=== PATIENT | male | born 1945 | race American Indian/Alaskan Native ===

== ENCOUNTER 2017-02-04 18:31 | Inpatient (IN) | payer MEDICARE, MEDICAID ==
[2017-02-04 20:14] LABS: Albumin 3.5 g/dL (3.9-5); Calcium 9.3 mg/dL (8.4-10.2)
--- NOTE | 2017-02-04 21:01 | Cat Scan Report ---
FINAL REPORT PROCEDURE: CT HEAD/BRAIN WO CON TECHNIQUE: Computerized tomography of the head was performed without contrast material. HISTORY: AMS, right side weakness COMPARISON: No prior studies are available for comparison. FINDINGS: There is encephalomalacia in the medial left occipital lobe and left inferior cerebellum. There are extensive underlying involutional changes, with prominence of the ventricles and the sulci. There is periventricular white matter low attenuation, compatible with chronic microvascular ischemic changes. Chronic appearing subcentimeter bilateral basal ganglia lacunar infarcts are noted. Intracranial arteries are symmetric in appearance. There is no CT evidence of intracranial mass, hemorrhage, acute territorial infarction, or hydrocephalus. Calvarium is intact. Visualized paranasal sinuses and mastoids are aerated. There is deformity of the right globe. IMPRESSION: Chronic ischemic changes. No CT evidence of acute intracranial abnormality
--- NOTE | 2017-02-04 21:02 | Emergency Department Report ---
ED Altered Mental Status HPI - General Chief Complaint: Altered Mental Status Stated Complaint: FALL W/ R SIDE PARALYSIS Time Seen by Provider: 02/04/17 20:30 Source: EMS Mode of arrival: Stretcher Limitations: Language Barrier (APHASIA-MODERATE, PT UNABLE TO GIVE ANY HISTORY ) , Altered Mental Status - History of Present Illness Initial Comments: 71 YO MALE NOTED TO [facility]. HE WAS FOUND DOWN ON THE FLOOR TODAY AT 1430 AND WAS BROUGHT TO THE ER AT 1900 WITH C/O AMS. PER ASSISTED, PT IS ALERT BUT UNRESPONSIVE. PT WAS LYING ON BED WITH EYES CLOSED IN NO RESPIRATORY DISTRESS. MD Complaint: altered mental status -: Sudden Severity: moderate Consistency of Symptoms: constant Context: other (FPSSTCVA) - Related Data Home Medications Medication Instructions Recorded Confirmed Last Taken Aspirin EC [Aspirin Enteric Coated 81 mg PO QDAY 01/02/16 01/02/16 Unknown TAB] Calcitriol [Rocaltrol] 0.25 mcg PO QDAY 01/02/16 01/02/16 Unknown DULoxetine [Cymbalta] 30 mg PO DAILY 01/02/16 01/02/16 Unknown Ferrous Sulfate [Feosol] 325 mg PO QDAY 01/02/16 01/02/16 Unknown Hydralazine HCl [Apresoline TAB] 50 mg PO Q8HR 01/02/16 01/02/16 Unknown Insulin Glargine [Lantus] 50 units SQ QHS 01/02/16 01/02/16 Unknown Insulin Lispro [Humalog 100 0 units SQ ACHS 01/02/16 01/02/16 Unknown UNITS/ML Kwikpen] Insulin Lispro [Humalog 100 3 units SQ AC 01/02/16 01/02/16 Unknown UNITS/ML Kwikpen] Metoprolol [Lopressor TAB] 50 mg PO DAILY 01/02/16 01/02/16 Unknown Pantoprazole [Protonix TAB] 40 mg PO QDAY 01/02/16 01/02/16 Unknown Simvastatin [Zocor TAB] 20 mg PO QHS 01/02/16 01/02/16 Unknown Sodium Bicarbonate 650 mg PO DAILY 01/02/16 01/02/16 Unknown Tamsulosin [Flomax] 0.4 mg PO QDAY 01/02/16 01/02/16 Unknown amLODIPine [Norvasc] 10 mg PO DAILY 01/02/16 01/02/16 Unknown traZODone [Desyrel] 50 mg PO QHS 01/02/16 01/02/16 Unknown Previous Rx's Medication Instructions Recorded Last Taken Type Amoxicillin [Amoxicillin TAB] 875 mg PO BID #14 tablet 01/02/16 Unknown Rx Allergies Allergy/AdvReac Type Severity Reaction Status Date / Time No Known Allergies Allergy Unverified 01/02/16 17:49 ED Review of Systems ROS: Stated complaint: FALL W/ R SIDE PARALYSIS Other details as noted in HPI Comment: Unobtainable due to pts medical conditions ED Past Medical Hx - Past Medical History Previous Medical History?: Yes Hx Hypertension: Yes Hx CVA: Yes Hx Diabetes: Yes Hx Renal Disease: Yes (renal failure) Additional medical history: insomnia. BPH. legally blind. dementia. toxic encephalopathy - Surgical History Past Surgical History?: No - Social History Smoking Status: Unknown if ever smoked Substance Use Type: None - Medications Home Medications: Home Medications Medication Instructions Recorded Confirmed Last Taken Type Amoxicillin [Amoxicillin TAB] 875 mg PO BID #14 tablet 01/02/16 Unknown Rx Aspirin EC [Aspirin Enteric Coated 81 mg PO QDAY 01/02/16 01/02/16 Unknown History TAB] Calcitriol [Rocaltrol] 0.25 mcg PO QDAY 01/02/16 01/02/16 Unknown History DULoxetine [Cymbalta] 30 mg PO DAILY 01/02/16 01/02/16 Unknown History Ferrous Sulfate [Feosol] 325 mg PO QDAY 01/02/16 01/02/16 Unknown History Hydralazine HCl [Apresoline TAB] 50 mg PO Q8HR 01/02/16 01/02/16 Unknown History Insulin Glargine [Lantus] 50 units SQ QHS 01/02/16 01/02/16 Unknown History Insulin Lispro [Humalog 100 0 units SQ ACHS 01/02/16 01/02/16 Unknown History UNITS/ML Kwikpen] Insulin Lispro [Humalog 100 3 units SQ AC 01/02/16 01/02/16 Unknown History UNITS/ML Kwikpen] Metoprolol [Lopressor TAB] 50 mg PO DAILY 01/02/16 01/02/16 Unknown History Pantoprazole [Protonix TAB] 40 mg PO QDAY 01/02/16 01/02/16 Unknown History Simvastatin [Zocor TAB] 20 mg PO QHS 01/02/16 01/02/16 Unknown History Sodium Bicarbonate 650 mg PO DAILY 01/02/16 01/02/16 Unknown History Tamsulosin [Flomax] 0.4 mg PO QDAY 01/02/16 01/02/16 Unknown History amLODIPine [Norvasc] 10 mg PO DAILY 01/02/16 01/02/16 Unknown History traZODone [Desyrel] 50 mg PO QHS 01/02/16 01/02/16 Unknown History ED Physical Exam - General Limitations: Language Barrier (MODERTE TO SEVERE APHASIA), Altered Mental Status General appearance: alert, in no apparent distress - Head Head exam: Present: atraumatic, normocephalic - Eye Eye exam: Present: other (RIGHT EYE BLIND) - ENT ENT exam: Present: mucous membranes moist - Neck Neck exam: Present: normal inspection, full ROM - Respiratory Respiratory exam: Present: normal lung sounds bilaterally. Absent: respiratory distress, wheezes, rales - Cardiovascular Cardiovascular Exam: Present: regular rate, normal rhythm. Absent: systolic murmur, diastolic murmur, rubs, gallop - GI/Abdominal GI/Abdominal exam: Present: soft, distended (BUT NON TENDER), normal bowel sounds - Rectal Rectal exam: Present: deferred - Extremities Exam Extremities exam: Present: full ROM, pedal edema (FOOT BILATERA 4+) - Back Exam Back exam: Present: normal inspection - Neurological Exam Neurological exam: Present: alert, oriented X3 - Psychiatric Psychiatric exam: Present: normal affect, normal mood - Skin Skin exam: Present: warm, dry, intact, normal color, rash (HYPERPIGMENTATION OF LOWER EXTREMITY) ED Course Vital Signs 02/04/17 02/04/17 02/04/17 19:20 19:25 19:30 Temperature 98.4 F Pulse Rate 80 79 Respiratory 16 21 Rate Blood Pressure 185/94 179/90 Blood Pressure 185/94 [Right] O2 Sat by Pulse 100 98 100 Oximetry 02/04/17 02/04/17 02/04/17 19:41 19:51 20:00 Temperature Pulse Rate 76 77 Respiratory 19 16 Rate Blood Pressure 179/90 173/87 175/90 Blood Pressure [Right] O2 Sat by Pulse 99 100 100 Oximetry 02/04/17 02/04/17 02/04/17 20:10 20:21 20:30 Temperature Pulse Rate 77 78 78 Respiratory 11 L 12 20 Rate Blood Pressure 175/90 176/85 172/86 Blood Pressure [Right] O2 Sat by Pulse 100 100 100 Oximetry 02/04/17 02/04/17 02/04/17 20:49 20:51 21:00 Temperature Pulse Rate 76 76 76 Respiratory 22 21 20 Rate Blood Pressure 176/85 176/85 178/85 Blood Pressure [Right] O2 Sat by Pulse Oximetry 02/04/17 02/04/17 02/04/17 21:11 21:21 21:30 Temperature Pulse Rate 73 75 74 Respiratory 14 24 11 L Rate Blood Pressure 178/85 156/71 181/76 Blood Pressure [Right] O2 Sat by Pulse 100 100 100 Oximetry 02/04/17 02/04/17 02/04/17 21:41 21:51 22:00 Temperature Pulse Rate 75 74 74 Respiratory 10 L 9 L 10 L Rate Blood Pressure 178/85 163/78 159/74 Blood Pressure [Right] O2 Sat by Pulse 100 100 100 Oximetry 02/04/17 02/04/17 02/04/17 22:11 22:21 22:30 Temperature Pulse Rate 75 72 74 Respiratory 10 L 9 L 10 L Rate Blood Pressure 159/74 163/76 158/75 Blood Pressure [Right] O2 Sat by Pulse 100 100 100 Oximetry 02/04/17 02/04/17 02/04/17 22:41 22:51 23:00 Temperature Pulse Rate 131 H 132 H 132 H Respiratory 17 25 H 17 Rate Blood Pressure 158/75 167/105 167/97 Blood Pressure [Right] O2 Sat by Pulse 100 100 100 Oximetry 02/04/17 23:11 Temperature Pulse Rate 131 H Respiratory 10 L Rate Blood Pressure 167/97 Blood Pressure [Right] O2 Sat by Pulse 100 Oximetry - Lab Data Result diagrams: 02/04/17 19:37 Lab Results 02/04/17 02/04/17 02/04/17 Range/Units 19:37 19:37 19:37 Sodium 135 L (137-145) mmol/L Potassium 5.2 H (3.6-5.0) mmol/L Chloride 99.7 (98-107) mmol/L Carbon Dioxide 19 L (22-30) mmol/L Anion Gap 22 mmol/L BUN 55 H (9-20) mg/dL Creatinine 3.4 H (0.8-1.5) mg/dL Estimated GFR 22 ml/min BUN/Creatinine Ratio 16 % Glucose 284 H (75-100) mg/dL Calcium 9.3 (8.4-10.2) mg/dL Total Bilirubin 0.40 (0.1-1.2) mg/dL AST 18 (5-40) units/L ALT 15 (7-56) units/L Alkaline Phosphatase 106 (35-129) units/L Total Creatine Kinase (55-170) units/L CK-MB (CK-2) (0.0-4.0) ng/mL CK-MB (CK-2) Rel Index (0-4) Troponin T (0.00-0.029) ng/mL Total Protein 7.1 (6.3-8.2) g/dL Albumin 3.5 L (3.9-5) g/dL Albumin/Globulin Ratio 1.0 % Triglycerides (2-149) mg/dL Cholesterol (50-199) mg/dL LDL Cholesterol Direct (50-130) mg/dL HDL Cholesterol (40-59) mg/dL Cholesterol/HDL Ratio % TSH 1.900 (0.270-4.200) mlU/mL Urine Color (Yellow) Urine Turbidity (Clear) Urine pH (5.0-7.0) Ur Specific [place] (1.003-1.030) Urine Protein (Negative) mg/dL Urine Glucose (UA) (Negative) mg/dL Urine Ketones (Negative) mg/dL Urine Blood (Negative) Urine Nitrite (Negative) Urine Bilirubin (Negative) Urine Urobilinogen (<2.0) mg/dL Ur Leukocyte Esterase (Negative) Urine WBC (Auto) (0.0-6.0) /HPF Urine RBC (Auto) (0.0-6.0) /HPF Urine Bacteria (Auto) (Negative) /HPF Urine Opiates Screen Urine Methadone Screen Ur Barbiturates Screen Ur Phencyclidine Scrn Ur Amphetamines Screen U Benzodiazepines Scrn Urine Cocaine Screen U Marijuana (THC) Screen Drugs of Abuse Note Plasma/Serum Alcohol < 0.01 (0-0.07) gm% 02/04/17 02/04/17 02/04/17 Range/Units 21:17 21:34 21:34 Sodium (137-145) mmol/L Potassium (3.6-5.0) mmol/L Chloride (98-107) mmol/L Carbon Dioxide (22-30) mmol/L Anion Gap mmol/L BUN (9-20) mg/dL Creatinine (0.8-1.5) mg/dL Estimated GFR ml/min BUN/Creatinine Ratio % Glucose (75-100) mg/dL Calcium (8.4-10.2) mg/dL Total Bilirubin (0.1-1.2) mg/dL AST (5-40) units/L ALT (7-56) units/L Alkaline Phosphatase (35-129) units/L Total Creatine Kinase 222 H (55-170) units/L CK-MB (CK-2) 6.6 H (0.0-4.0) ng/mL CK-MB (CK-2) Rel Index 2.9 (0-4) Troponin T 0.045 H (0.00-0.029) ng/mL Total Protein (6.3-8.2) g/dL Albumin (3.9-5) g/dL Albumin/Globulin Ratio % Triglycerides 73 (2-149) mg/dL Cholesterol 179 (50-199) mg/dL LDL Cholesterol Direct 77 (50-130) mg/dL HDL Cholesterol 88 H (40-59) mg/dL Cholesterol/HDL Ratio 2.03 % TSH (0.270-4.200) mlU/mL Urine Color Yellow (Yellow) Urine Turbidity Clear (Clear) Urine pH 6.0 (5.0-7.0) Ur Specific [place] 1.012 (1.003-1.030) Urine Protein 100 mg/dl (Negative) mg/dL Urine Glucose (UA) >=500 (Negative) mg/dL Urine Ketones Neg (Negative) mg/dL Urine Blood Neg (Negative) Urine Nitrite Neg (Negative) Urine Bilirubin Neg (Negative) Urine Urobilinogen < 2.0 (<2.0) mg/dL Ur Leukocyte Esterase Neg (Negative) Urine WBC (Auto) < 1.0 (0.0-6.0) /HPF Urine RBC (Auto) 2.0 (0.0-6.0) /HPF Urine Bacteria (Auto) 1+ (Negative) /HPF Urine Opiates Screen Presumptive negative Urine Methadone Screen Presumptive negative Ur Barbiturates Screen Presumptive negative Ur Phencyclidine Scrn Presumptive negative Ur Amphetamines Screen Presumptive negative U Benzodiazepines Scrn Presumptive negative Urine Cocaine Screen Presumptive negative U Marijuana (THC) Screen Presumptive negative Drugs of Abuse Note Disclamer Plasma/Serum Alcohol (0-0.07) gm% - EKG Data EKG shows normal: sinus rhythm, axis, intervals, QRS complexes Interpretation: nonspecific ST-T wave silvano - Radiology Data Radiology results: report reviewed (CT HEAD: CHRONIC ISCHEMIC CHANGES) Critical Care Time: Yes Critical care attestation.: If time is entered above; I have spent that time in minutes in the direct care of this critically ill patient, excluding procedure time. MELVINA Critical Care Time: 60MIN ED Disposition Clinical Impression: NSTEMI (non-ST elevated myocardial infarction), Metabolic acidosis, Hyperglycemia, Urinary retention Altered mental status Qualifiers: Altered mental status type: unspecified Qualified Code(s): R41.82 - Altered mental status, unspecified Renal failure (ARF), acute on chronic Qualifiers: Acute renal failure type: unspecified Chronic kidney disease stage: unspecified stage Qualified Code(s): N17.9 - Acute kidney failure, unspecified BPH (benign prostatic hyperplasia) Qualifiers: Lower urinary tract symptom presence: symptoms present Lower urinary tract symptom detail: unspecified Qualified Code(s): N40.1 - Benign prostatic hyperplasia with lower urinary tract symptoms Disposition: OP ADMIT IP TO THIS HOSP Is pt being admited?: Yes Does the pt Need Aspirin: No Condition: Serious Referrals: PRIMARY CARE, [Primary Care Provider] - 3-5 Days Time of Disposition: 22:45 (DR FORRESTER THE HOSPITALIST PAGED AND SHE WILL ADMIT THE PT TO THE HOSPITAL)
[2017-02-04 21:52] LABS: Creatine Kinase MB 6.6 ng/mL (0.0-4.0)
[2017-02-04 21:58] LABS: Bacteria,Urine 1+ /HPF (Negative); Bilirubin,Urine NEG (Negative); Blood,Urine NEG (Negative); Color,Urine Yellow (Yellow); Nitrite,Urine NEG (Negative); Urobilinogen,Urine < 2.0 mg/dL (<2.0); WBC,Urine < 1.0 /HPF (0.0-6.0)
[2017-02-04 22:04] LABS: Chol/HDL Ratio 2.03 %
[2017-02-04 22:05] LABS: Amphetamine Screen,Urine PRESUMPTIVE NEGATIVE; Benzodiazepines Screen,Urine PRESUMPTIVE NEGATIVE; Cannabinoid Screen,Urine PRESUMPTIVE NEGATIVE; Cocaine Screen,Urine PRESUMPTIVE NEGATIVE; Methadone Screen,Urine PRESUMPTIVE NEGATIVE; Opiate Screen,Urine PRESUMPTIVE NEGATIVE
[2017-02-04] MEDS ORDERED: NACL 0.9% 1000 ML 1,000 ML IV ONE (22:34)
[2017-02-04] MEDS ORDERED: PLAVIX PO ONE (22:47)
[2017-02-04] MEDS ORDERED: SODIUM CHLORIDE FLUSH SYRINGE 10 ML IV PRN (23:14)
[2017-02-04] MEDS ORDERED: ZOFRAN IV PRN (23:14)
[2017-02-04] MEDS ORDERED: MILK OF MAGNESIA PO PRN (23:14)
[2017-02-04] MEDS ORDERED: TYLENOL PO PRN (23:14)
[2017-02-04] MEDS ORDERED: APRESOLINE IV PRN (23:14)
[2017-02-04] MEDS ORDERED: DULCOLAX PR PRN (23:14)
[2017-02-04] MEDS ORDERED: PHENERGAN PR PRN (23:14)
--- NOTE | 2017-02-04 23:20 | History and Physical Report ---
History of Present Illness Date of examination: 02/04/17 History of present illness: 71-year-old male with a history of hypertension, diabetes, dementia, chronic kidney disease, CVA, blind was sent to the emergency room from the intermediate because he was noted to have right-sided weakness yesterday. Patient is usually able to ambulate and talk, he was not able to speak, time off onset is unclear. Today he was found on the floor. Review of system is unobtainable PAST MEDICAL HISTORY:hypertension, diabetes, dementia, chronic kidney disease, CVA, blind PAST SURGICAL HISTORY: Unknown FAMILY HISTORY: Unknown SOCIAL HISTORY:residential resident Medications and Allergies Allergies Allergy/AdvReac Type Severity Reaction Status Date / Time No Known Allergies Allergy Unverified 01/02/16 17:49 Home Medications Medication Instructions Recorded Confirmed Last Taken Type Hydralazine HCl [Apresoline TAB] 50 mg PO TID 01/02/16 02/05/17 Unknown History Insulin Glargine [Lantus] 58 units SQ QHS 01/02/16 02/05/17 Unknown History Metoprolol [Lopressor TAB] 50 mg PO BID 01/02/16 02/05/17 Unknown History Pantoprazole [Protonix TAB] 40 mg PO QDAY 01/02/16 02/05/17 Unknown History amLODIPine [Norvasc] 10 mg PO DAILY 01/02/16 02/05/17 Unknown History traZODone [Desyrel] 25 mg PO QHS 01/02/16 02/05/17 Unknown History Acetaminophen 650 mg PO Q6H PRN 02/05/17 02/05/17 Unknown History Duloxetine HCl [Cymbalta] 20 mg PO QDAY 02/05/17 02/05/17 Unknown History Insulin Aspart [NovoLOG Flexpen] 12 units SQ AC 02/05/17 02/05/17 Unknown History Insulin Aspart [NovoLOG Flexpen] See Protocol SQ ACHS 02/05/17 02/07/17 1 Day Ago History ~02/06/17 Tamsulosin [Flomax] 0.4 mg PO QHS 02/05/17 02/05/17 Unknown History Active Meds: Active Medications Acetaminophen (Tylenol) 650 mg PO Q4H PRN PRN Reason: Pain, Mild (1-3) Aspirin (Aspirin) 325 mg PO QDAY TU Aspirin (Aspirin) 325 mg PO QDAY TU Bisacodyl (Dulcolax) 10 mg [place] QDAY PRN PRN Reason: Constipation Enoxaparin Sodium (Lovenox) 30 mg SUB-Q QDAY TU Hydralazine HCl (Apresoline) 5 mg IV Q6H PRN PRN Reason: Keep SBP between 160-185 mm Hg Sodium Chloride (Nacl 0.9% 1000 Ml) 1,000 mls @ 999 mls/hr IV BOLUS ONE Stop: 02/04/17 23:34 Sodium Chloride (Nacl 0.45% 1000 Ml) 1,000 mls @ 75 mls/hr IV DIRECT TU Magnesium Hydroxide (Milk Of Magnesia) 30 ml PO Q4H PRN PRN Reason: Constipation Ondansetron HCl (Zofran) 4 mg IV Q8H PRN PRN Reason: N/V unrelieved by Reglan Promethazine HCl (Phenergan) 25 mg [place] Q6H PRN PRN Reason: Nausea And Vomiting Sodium Chloride (Sodium Chloride Flush Syringe 10 Ml) 10 ml INJ PRN PRN PRN Reason: LINE FLUSH Exam - Physical Exam Narrative exam: Gen. appearance: Patient lying in bed in no acute distress HEENT: Normocephalic/atraumatic, pupils equal round reactive to light, extra occular movement intact, no scleral icterus, no JVD or thyromegaly or nodule, neck is supple, mucous membrane moist, no erythema or exudate Heart: S1-S2, regular rate and rhythm Lungs: Clear to auscultation bilateral breathing comfortable Abdomen: Positive bowel sounds, nontender, nondistended, no organomegaly Extremities: No edema, cyanosis, clubbing Neuro:: Difficult to assess, does not speak Skin: No rash, nodules, warm dry - Constitutional Vitals: Temp Pulse Resp BP Pulse Ox 98.4 F 131 H 10 L 167/97 100 02/04/17 19:25 02/04/17 23:11 02/04/17 23:11 02/04/17 23:11 02/04/17 23:11 Results - Labs CBC & Chem 7: 02/09/17 05:08 02/09/17 05:08 Labs: Abnormal lab results 02/04/17 02/04/17 Range/Units 19:37 21:17 Sodium 135 L (137-145) mmol/L Potassium 5.2 H (3.6-5.0) mmol/L Carbon Dioxide 19 L (22-30) mmol/L BUN 55 H (9-20) mg/dL Creatinine 3.4 H (0.8-1.5) mg/dL Glucose 284 H (75-100) mg/dL Total Creatine Kinase 222 H (55-170) units/L CK-MB (CK-2) 6.6 H (0.0-4.0) ng/mL Troponin T 0.045 H (0.00-0.029) ng/mL Albumin 3.5 L (3.9-5) g/dL HDL Cholesterol 88 H (40-59) mg/dL - Imaging and Cardiology EKG: image reviewed Chest x-ray: image reviewed CT Scan - head: report reviewed Assessment and Plan Assessment CVA, acute Tachycardia Hypertension Diabetes Dementia Chronic kidney disease. Thrombocytopenia Plan Admit to medicine Obtain MRI of the head, carotid Doppler, echo, d-dimer Do neurochecks, screening Start aspirin, statin [employer] neurology, physical occupational therapy Start gentle IV fluid, no etiology for tachycardias yet DVT prophylaxis
[2017-02-05] MEDS ORDERED: LOPRESSOR IV ONE ×2 (01:01→01:05)
[2017-02-05] MEDS ORDERED: NACL 0.45% 1000 ML 1,000 ML IV ONE (01:05)
[2017-02-05] MEDS: NACL 0.45% 1000 ML 1,000 ML IV SCH ×2 (01:12→15:59)
[2017-02-05 01:49] LABS: Basophils % (Auto) 0.4 % (0.0-1.8); Eosinophils # (Auto) 0.1 K/mm3 (0.0-0.4); Hematocrit 41.3 % (35.5-45.6); Hemoglobin 13.8 gm/dl (11.8-15.2); Lymphocytes # (Auto) 1.8 K/mm3 (1.2-5.4); Lymphocytes % (Auto) 16.6 % (13.4-35.0); Mean Corpuscular HGB Conc 34 % (32-34); Mean Corpuscular Hemoglobin 32 pg (28-32); Mean Corpuscular Volume 95 fl (84-94); Monocytes # (Auto) 1.3 K/mm3 (0.0-0.8); Monocytes % (Auto) 12.2 % (0.0-7.3); Platelet Count 130 K/mm3 (140-440); Red Blood Count 4.35 M/mm3 (3.65-5.03); Red Cell Distribution Width 14.6 % (13.2-15.2)
[2017-02-05] MEDS ORDERED: LOPRESSOR PO ONE (02:22)
[2017-02-05] MEDS ORDERED: LOPRESSOR ONE (02:43)
[2017-02-05 06:22] LABS: Creatine Kinase MB 6.6 ng/mL (0.0-4.0)
--- NOTE | 2017-02-05 09:17 | XRay Report ---
Single view chest: History: Shortness of breath. Findings: Cardiomegaly. Trachea is midline. Suspicion of mild pulmonary venous congestion. No consolidation or pleural effusion. Impression: Mild cardiomegaly with mild pulmonary venous congestion.
[2017-02-05] MEDS ORDERED: ASPIRIN PO SCH (10:00)
[2017-02-05] MEDS ORDERED: LOVENOX SUB-Q SCH (10:00)
[2017-02-05] MEDS: CYMBALTA PO SCH (11:51)
[2017-02-05] MEDS: ASPIRIN PO SCH (11:51)
[2017-02-05] MEDS: LOPRESSOR PO SCH ×2 (11:52→21:37)
[2017-02-05] MEDS: PROTONIX PO SCH (11:52)
--- NOTE | 2017-02-05 12:03 | Consultation ---
History of Present Illness Consult date: 02/05/17 History of present illness: I have dictate dfull note on this patient PMH of blindness and aphasia the right sided weakness could be new await MRI the current CT shows severe atrophy/ old left occipital stroke the degree of brain atrophy is severe other factors could be UTI diabetes and renal failure Thanks will follow up Medications and Allergies Allergies Allergy/AdvReac Type Severity Reaction Status Date / Time No Known Allergies Allergy Unverified 01/02/16 17:49 Home Medications Medication Instructions Recorded Confirmed Last Taken Type Hydralazine HCl [Apresoline TAB] 50 mg PO TID 01/02/16 02/05/17 Unknown History Insulin Glargine [Lantus] 58 units SQ QHS 01/02/16 02/05/17 Unknown History Metoprolol [Lopressor TAB] 50 mg PO BID 01/02/16 02/05/17 Unknown History Pantoprazole [Protonix TAB] 40 mg PO QDAY 01/02/16 02/05/17 Unknown History amLODIPine [Norvasc] 10 mg PO DAILY 01/02/16 02/05/17 Unknown History traZODone [Desyrel] 25 mg PO QHS 01/02/16 02/05/17 Unknown History Acetaminophen 650 mg PO Q6H PRN 02/05/17 02/05/17 Unknown History Duloxetine HCl [Cymbalta] 20 mg PO QDAY 02/05/17 02/05/17 Unknown History Insulin Aspart [NovoLOG Flexpen] 12 units SQ AC 02/05/17 02/05/17 Unknown History Insulin Aspart [NovoLOG Flexpen] See Protocol 02/05/17 Unknown History Tamsulosin [Flomax] 0.4 mg PO QHS 02/05/17 02/05/17 Unknown History Active Meds: Active Medications Acetaminophen (Tylenol) 650 mg PO Q4H PRN PRN Reason: Pain, Mild (1-3) Aspirin (Aspirin) 325 mg PO QDAY [facility] Last Admin: 02/05/17 11:51 Dose: 325 mg Bisacodyl (Dulcolax) 10 mg [place] QDAY PRN PRN Reason: Constipation Duloxetine HCl (Cymbalta) 30 mg PO QDAY [facility] Last Admin: 02/05/17 11:51 Dose: 30 mg Hydralazine HCl (Apresoline) 5 mg IV Q6H PRN PRN Reason: Keep SBP between 160-185 mm Hg Sodium Chloride (Nacl 0.45% 1000 Ml) 1,000 mls @ 75 mls/hr IV DIRECT [facility] Last Admin: 02/05/17 01:12 Dose: 75 mls/hr Magnesium Hydroxide (Milk Of Magnesia) 30 ml PO Q4H PRN PRN Reason: Constipation Metoprolol Tartrate (Lopressor) 50 mg PO BID [facility] Last Admin: 02/05/17 11:52 Dose: 50 mg Ondansetron HCl (Zofran) 4 mg IV Q8H PRN PRN Reason: N/V unrelieved by Reglan Pantoprazole Sodium (Protonix) 40 mg PO QDAY [facility] Last Admin: 02/05/17 11:52 Dose: 40 mg Pravastatin Sodium (Pravachol) 40 mg PO QHS [facility] Sodium Chloride (Sodium Chloride Flush Syringe 10 Ml) 10 ml IV PRN PRN PRN Reason: LINE FLUSH Tamsulosin HCl (Flomax) 0.4 mg PO QHS [facility] Physical Examination - Vital Signs Vital Signs: Vital Signs Pulse Ox 100 02/04/17 19:20 Results - Laboratory Findings CBC and BMP: 02/05/17 01:30 02/04/17 19:37 Abnormal Lab Findings: Abnormal Labs 02/04/17 02/04/17 02/04/17 19:37 21:02 21:17 MCV Plt Count [place] % (Auto) [place] # D-Dimer Sodium 135 L Potassium 5.2 H Carbon Dioxide 19 L BUN 55 H Creatinine 3.4 H Glucose 284 H POC Glucose 275 H Total Creatine Kinase 222 H CK-MB (CK-2) 6.6 H Troponin T 0.045 H Albumin 3.5 L HDL Cholesterol 88 H 02/04/17 02/04/17 02/05/17 23:36 23:36 01:30 MCV 95 H Plt Count 130 L [place] % (Auto) 12.2 H [place] # 1.3 H D-Dimer 524.65 H Sodium Potassium Carbon Dioxide BUN Creatinine Glucose POC Glucose Total Creatine Kinase 192 H CK-MB (CK-2) 7.0 H Troponin T 0.055 H D Albumin HDL Cholesterol 02/05/17 02/05/17 05:27 08:57 MCV Plt Count [place] % (Auto) [place] # D-Dimer Sodium Potassium Carbon Dioxide BUN Creatinine Glucose POC Glucose 204 H Total Creatine Kinase 177 H CK-MB (CK-2) 6.6 H Troponin T 0.069 H D Albumin HDL Cholesterol
--- NOTE | 2017-02-05 17:43 | Progress Note ---
Assessment and Plan Assessment and plan: Patient is a 71-year-old male from residential with history of BPH, depression , hypertension, diabetes mellitus type 2 on insulin, dementia, CK D4, CVA and blindness who presents with new-onset right-sided weakness -Suspect acute ischemic stroke: Consult neurology: Stroke orders -Aphasia due to stroke: Consult speech therapy -Functional quadriplegia: PT OT -UnControlled diabetes mellitus: add Sliding scale insulin -Suspect acute kidney injury/ckd 4, vasomotor nephropathy: consult nephrology -Hyperkalemia, mild: Treat with insulin and repeat levels -Elevated troponin: Consult Cardiology History Interval history: Patient was seen and examined. Follow-up on current diagnosis. Overnight uneventful. Patient patient is nonverbal. Imaging, nursing note, chart, labs and old chart reviewed. Hospitalist Physical - Physical exam Narrative exam: GEN: Thin frail, debilitated man NAD, sleeping but arousable HEENT: NCAT, EOMI, PERRL, OP Clear NECK: supple, no adenopathy, no thyromegaly, no JVD CVS/HEART: RRR, NORMAL S1S2, NO JVD, pulses present bilaterally CHEST/LUNGS: CTA B, Symmetrical chest expansion, good air entry bilaterally GI/Abdomen: soft, NTND, good bowel sounds, no guarding or rebound /Bladder: no suprapubic tenderness, no CVA or paraspinal tenderness EXT/Skin: no c/c/e, no obvious rash MSK: Contracted legs Neuro: CN 2-12 grossly intact, Doesn't follow commands Psych: calm - Constitutional Vitals: Temp Pulse Resp BP Pulse Ox 97.9 F 125 H 20 159/85 100 02/05/17 08:50 02/05/17 11:52 02/05/17 08:50 02/05/17 11:52 02/05/17 08:50 Results - Labs CBC & Chem 7: 02/05/17 01:30 02/04/17 19:37 Labs: Laboratory Last Values WBC 10.7 K/mm3 (4.5-11.0) 02/05/17 01:30 RBC 4.35 M/mm3 (3.65-5.03) 02/05/17 01:30 Hgb 13.8 gm/dl (11.8-15.2) 02/05/17 01:30 Hct 41.3 % (35.5-45.6) 02/05/17 01:30 MCV 95 fl (84-94) H 02/05/17 01:30 MCH 32 pg (28-32) 02/05/17 01:30 MCHC 34 % (32-34) 02/05/17 01:30 RDW 14.6 % (13.2-15.2) 02/05/17 01:30 Plt Count 130 K/mm3 (140-440) L 02/05/17 01:30 Lymph % (Auto) 16.6 % (13.4-35.0) 02/05/17 01:30 [place] % (Auto) 12.2 % (0.0-7.3) H 02/05/17 01:30 Eos % (Auto) 1.0 % (0.0-4.3) 02/05/17 01:30 Baso % (Auto) 0.4 % (0.0-1.8) 02/05/17 01:30 Lymph # 1.8 K/mm3 (1.2-5.4) 02/05/17 01:30 [place] # 1.3 K/mm3 (0.0-0.8) H 02/05/17 01:30 Eos # 0.1 K/mm3 (0.0-0.4) 02/05/17 01:30 Baso # 0.0 K/mm3 (0.0-0.1) 02/05/17 01:30 Seg Neutrophils % 69.8 % (40.0-70.0) 02/05/17 01:30 Seg Neutrophils # 7.4 K/mm3 (1.8-7.7) 02/05/17 01:30 D-Dimer 524.65 ng/mlDDU (0-234) H 02/04/17 23:36 Sodium 135 mmol/L (137-145) L 02/04/17 19:37 Potassium 5.2 mmol/L (3.6-5.0) H 02/04/17 19:37 Chloride 99.7 mmol/L (98-107) 02/04/17 19:37 Carbon Dioxide 19 mmol/L (22-30) L 02/04/17 19:37 Anion Gap 22 mmol/L 02/04/17 19:37 BUN 55 mg/dL (9-20) H 02/04/17 19:37 Creatinine 3.4 mg/dL (0.8-1.5) H 02/04/17 19:37 Estimated GFR 22 ml/min 02/04/17 19:37 BUN/Creatinine Ratio 16 % 02/04/17 19:37 Glucose 284 mg/dL (75-100) H 02/04/17 19:37 POC Glucose 195 (70-105) H 02/05/17 12:00 Calcium 9.3 mg/dL (8.4-10.2) 02/04/17 19:37 Total Bilirubin 0.40 mg/dL (0.1-1.2) 02/04/17 19:37 AST 18 units/L (5-40) 02/04/17 19:37 ALT 15 units/L (7-56) 02/04/17 19:37 Alkaline Phosphatase 106 units/L (35-129) 02/04/17 19:37 Total Creatine Kinase 177 units/L (55-170) H 02/05/17 05:27 CK-MB (CK-2) 6.6 ng/mL (0.0-4.0) H 02/05/17 05:27 CK-MB (CK-2) Rel Index 3.7 (0-4) 02/05/17 05:27 Troponin T 0.069 ng/mL (0.00-0.029) H D 02/05/17 05:27 Total Protein 7.1 g/dL (6.3-8.2) 02/04/17 19:37 Albumin 3.5 g/dL (3.9-5) L 02/04/17 19:37 Albumin/Globulin Ratio 1.0 % 02/04/17 19:37 Triglycerides 73 mg/dL (2-149) 02/04/17 21:17 Cholesterol 179 mg/dL (50-199) 02/04/17 21:17 LDL Cholesterol Direct 77 mg/dL (50-130) 02/04/17 21:17 HDL Cholesterol 88 mg/dL (40-59) H 02/04/17 21:17 Cholesterol/HDL Ratio 2.03 % 02/04/17 21:17 TSH 1.900 mlU/mL (0.270-4.200) 02/04/17 19:37 Urine Color Yellow (Yellow) 02/04/17 21:34 Urine Turbidity Clear (Clear) 02/04/17 21:34 Urine pH 6.0 (5.0-7.0) 02/04/17 21:34 Ur Specific [place] 1.012 (1.003-1.030) 02/04/17 21:34 Urine Protein 100 mg/dl mg/dL (Negative) 02/04/17 21:34 Urine Glucose (UA) >=500 mg/dL (Negative) 02/04/17 21:34 Urine Ketones Neg mg/dL (Negative) 02/04/17 21:34 Urine Blood Neg (Negative) 02/04/17 21:34 Urine Nitrite Neg (Negative) 02/04/17 21:34 Urine Bilirubin Neg (Negative) 02/04/17 21:34 Urine Urobilinogen < 2.0 mg/dL (<2.0) 02/04/17 21:34 Ur Leukocyte Esterase Neg (Negative) 02/04/17 21:34 Urine WBC (Auto) < 1.0 /HPF (0.0-6.0) 02/04/17 21:34 Urine RBC (Auto) 2.0 /HPF (0.0-6.0) 02/04/17 21:34 Urine Bacteria (Auto) 1+ /HPF (Negative) 02/04/17 21:34 Urine Opiates Screen Presumptive negative 02/04/17 21:34 Urine Methadone Screen Presumptive negative 02/04/17 21:34 Ur Barbiturates Screen Presumptive negative 02/04/17 21:34 Ur Phencyclidine Scrn Presumptive negative 02/04/17 21:34 Ur Amphetamines Screen Presumptive negative 02/04/17 21:34 U Benzodiazepines Scrn Presumptive negative 02/04/17 21:34 Urine Cocaine Screen Presumptive negative 02/04/17 21:34 U Marijuana (THC) Screen Presumptive negative 02/04/17 21:34 Drugs of Abuse Note Disclamer 02/04/17 21:34 Plasma/Serum Alcohol < 0.01 gm% (0-0.07) 02/04/17 19:37
[2017-02-05] MEDS: PRAVACHOL PO SCH (21:36)
[2017-02-05] MEDS: FLOMAX PO SCH (21:36)
[2017-02-06] MEDS: NOVOLOG SUB-Q SCH ×3 (00:43→15:47)
[2017-02-06] MEDS: NACL 0.45% 1000 ML 1,000 ML IV SCH (04:33)
[2017-02-06] MEDS ORDERED: ATIVAN IV ONE (08:15)
[2017-02-06] MEDS ORDERED: ATIVAN ONE (08:27)
[2017-02-06] MEDS: ASPIRIN PO SCH (10:48)
[2017-02-06] MEDS: LOPRESSOR PO SCH ×2 (10:48→21:31)
[2017-02-06] MEDS: PROTONIX PO SCH (10:49)
--- NOTE | 2017-02-06 11:05 | Consultation ---
History of Present Illness Consult date: 02/06/17 History of present illness: await resuts of the EEG and MRI suspect recurrent stroke based on the history from the [facility] Home by direct witness of the stroke Medications and Allergies Allergies Allergy/AdvReac Type Severity Reaction Status Date / Time No Known Allergies Allergy Unverified 01/02/16 17:49 Home Medications Medication Instructions Recorded Confirmed Last Taken Type Hydralazine HCl [Apresoline TAB] 50 mg PO TID 01/02/16 02/05/17 Unknown History Insulin Glargine [Lantus] 58 units SQ QHS 01/02/16 02/05/17 Unknown History Metoprolol [Lopressor TAB] 50 mg PO BID 01/02/16 02/05/17 Unknown History Pantoprazole [Protonix TAB] 40 mg PO QDAY 01/02/16 02/05/17 Unknown History amLODIPine [Norvasc] 10 mg PO DAILY 01/02/16 02/05/17 Unknown History traZODone [Desyrel] 25 mg PO QHS 01/02/16 02/05/17 Unknown History Acetaminophen 650 mg PO Q6H PRN 02/05/17 02/05/17 Unknown History Duloxetine HCl [Cymbalta] 20 mg PO QDAY 02/05/17 02/05/17 Unknown History Insulin Aspart [NovoLOG Flexpen] 12 units SQ AC 02/05/17 02/05/17 Unknown History Insulin Aspart [NovoLOG Flexpen] See Protocol 02/05/17 Unknown History Tamsulosin [Flomax] 0.4 mg PO QHS 02/05/17 02/05/17 Unknown History Active Meds: Active Medications Acetaminophen (Tylenol) 650 mg PO Q4H PRN PRN Reason: Pain, Mild (1-3) Aspirin (Aspirin) 325 mg PO QDAY [facility] Last Admin: 02/05/17 11:51 Dose: 325 mg Bisacodyl (Dulcolax) 10 mg PA QDAY PRN PRN Reason: Constipation Duloxetine HCl (Cymbalta) 30 mg PO QDAY [facility] Last Admin: 02/05/17 11:51 Dose: 30 mg Hydralazine HCl (Apresoline) 5 mg IV Q6H PRN PRN Reason: Keep SBP between 160-185 mm Hg Sodium Chloride (Nacl 0.45% 1000 Ml) 1,000 mls @ 75 mls/hr IV DIRECT [facility] Last Admin: 02/06/17 04:33 Dose: 75 mls/hr Insulin Aspart (Novolog) 0 units SUB-Q Q6HR [facility] PRN Reason: Protocol Last Admin: 02/06/17 06:38 Dose: 1 units Magnesium Hydroxide (Milk Of Magnesia) 30 ml PO Q4H PRN PRN Reason: Constipation Metoprolol Tartrate (Lopressor) 50 mg PO BID [facility] Last Admin: 02/05/17 21:37 Dose: Not Given Ondansetron HCl (Zofran) 4 mg IV Q8H PRN PRN Reason: N/V unrelieved by Reglan Pantoprazole Sodium (Protonix) 40 mg PO QDAY [facility] Last Admin: 02/05/17 11:52 Dose: 40 mg Pravastatin Sodium (Pravachol) 40 mg PO QHS [facility] Last Admin: 02/05/17 21:36 Dose: 40 mg Sodium Chloride (Sodium Chloride Flush Syringe 10 Ml) 10 ml IV PRN PRN PRN Reason: LINE FLUSH Tamsulosin HCl (Flomax) 0.4 mg PO QHS [facility] Last Admin: 02/05/17 21:36 Dose: 0.4 mg Physical Examination - Vital Signs Vital Signs: Vital Signs Pulse Ox 100 02/04/17 19:20 Results - Laboratory Findings CBC and BMP: 02/05/17 01:30 02/04/17 19:37 Abnormal Lab Findings: Abnormal Labs 02/04/17 02/04/17 02/04/17 19:37 21:02 21:17 MCV Plt Count [place] % (Auto) [place] # D-Dimer Sodium 135 L Potassium 5.2 H Carbon Dioxide 19 L BUN 55 H Creatinine 3.4 H Glucose 284 H POC Glucose 275 H Total Creatine Kinase 222 H CK-MB (CK-2) 6.6 H Troponin T 0.045 H Albumin 3.5 L HDL Cholesterol 88 H 02/04/17 02/04/17 02/05/17 23:36 23:36 01:30 MCV 95 H Plt Count 130 L [place] % (Auto) 12.2 H [place] # 1.3 H D-Dimer 524.65 H Sodium Potassium Carbon Dioxide BUN Creatinine Glucose POC Glucose Total Creatine Kinase 192 H CK-MB (CK-2) 7.0 H Troponin T 0.055 H D Albumin HDL Cholesterol 02/05/17 02/05/17 02/05/17 05:27 08:57 12:00 MCV Plt Count [place] % (Auto) [place] # D-Dimer Sodium Potassium Carbon Dioxide BUN Creatinine Glucose POC Glucose 204 H 195 H Total Creatine Kinase 177 H CK-MB (CK-2) 6.6 H Troponin T 0.069 H D Albumin HDL Cholesterol 02/05/17 02/05/17 02/06/17 12:17 18:01 00:04 MCV Plt Count [place] % (Auto) [place] # D-Dimer Sodium Potassium Carbon Dioxide BUN Creatinine Glucose POC Glucose 213 H 182 H 205 H Total Creatine Kinase CK-MB (CK-2) Troponin T Albumin HDL Cholesterol 02/06/17 06:34 MCV Plt Count [place] % (Auto) [place] # D-Dimer Sodium Potassium Carbon Dioxide BUN Creatinine Glucose POC Glucose 197 H Total Creatine Kinase CK-MB (CK-2) Troponin T Albumin HDL Cholesterol
--- NOTE | 2017-02-06 11:25 | Cat Scan Report ---
CT HEAD WITHOUT CONTRAST: HISTORY: Altered mental status. TECHNIQUE: Sequential CT images without contrast. FINDINGS: Non-contrast CT of the head is submitted demonstrating central and cortical atrophy. There are low density changes in the periventricular white matter. Chronic lacunar infarcts in both basal ganglia and chronic left HOISTMAN infarct are unchanged since 02/04/17. There is no intracranial hemorrhage or mass effect. There is no shift of the midline. Basilar cisterns are patent. The included portions of the paranasal sinuses and mastoid air cells are clear. IMPRESSION: Senescent changes as noted. No acute intracranial process. No significant change since 02/04/17.
[2017-02-06] MEDS ORDERED: KIONEX PO ONE (11:38)
--- NOTE | 2017-02-06 12:05 | Event Note ---
Date: 02/06/17 Cardiology note is dictated. #1 sinus tachycardia etiology uncertain #2 altered mental status #3 status post cerebrovascular accident with right hemiplegia. Patient will be monitored and followed with you. We'll obtain echocardiogram for further cardiac evaluation.
--- NOTE | 2017-02-06 13:28 | Consultation ---
HISTORY OF PRESENT ILLNESS: This is a 71-year-old black male who is admitted to [facility]. He is transferred from [facility]. History made available to me by the nurse was that he was at [facility], apparently, he is nonambulatory, has a chronic right and left-sided paralysis, has moderate aphasia, unable to give a history when he was presented to the Emergency Room. He is noted to have right-sided weakness at the long term, which is increased with altered mental status. Apparently, he fell, was unresponsive, lying in the bed with his eyes closed and was thought to have some degree of change in condition. He had been on a number of medications in the past, although I noticed that he has all of these with the exception of the Desyrel or sedatives. He has a prior history of diabetes, hypertension, depression, for which he was taking Cymbalta. He cannot be assessed in terms of language because of not speaking. He is according to the history blind bilaterally. Presenting blood pressure was 179/90, the pulse rate was 80, temperature is 98.4 degrees, his pulse oximeter rate was 100. On my examination, he is minimally responsive, barely mumbles, holds both of his arms in a flexed and contracted position, does not have flaccid paralysis, has extreme dystonia. Pupils are nonreactive to light. He is not following simple commands, but he does seem to mumble and reposition his arms when I extend them, so he is not comatose or in a comatose condition. He simply is not capable of communicating or gesturing, difficult for me to absolutely be sure he can hear because he does not seem to react with eye opening or with repositioning his hands when I speak to him, but when I actually physically grasp with hands and extend them, he does seem to turn and twist slightly. LABORATORY DATA: I have reviewed over all of his labs and he has a glucose of 284, creatinine of 3.4, BUN of 55. Liver function studies are unremarkable. IMAGING DATA: He has a head CT scan, which I reviewed, which shows evidence of a very widespread atrophy of a very severe type, old posterior occipital stroke on the left side, enlargement of the ventricular system, extreme cortical atrophy and evidence of marked dilation of the temporal horns of ventricular system. IMPRESSION: This patient's CT scan shows widespread atrophy throughout indication of old left occipital stroke, no acute strokes are noted, features suggest degenerative brain disease given the marked degree of atrophy. I do not notice any evidence to suggest acute injury to the brain from fall. I will follow the patient with you. We will get an EEG. JOB# [id number] TAMIKO/MIKE
--- NOTE | 2017-02-06 15:21 | XRay Report ---
FINAL REPORT PROCEDURE: XR CHEST 1V AP TECHNIQUE: Chest radiograph anteroposterior view. CPT 99357 HISTORY: congestion COMPARISON: None FINDINGS: The trachea is midline. The heart is normal in size. The lungs are clear. There is no evident pneumothorax or pleural fluid. The thoracic cage is intact. DJD of the left glenohumeral worse than acromioclavicular joint is seen. IMPRESSION: No radiographically evident acute cardiopulmonary disease.
--- NOTE | 2017-02-06 15:30 | Progress Note ---
Assessment and Plan Assessment and plan: Patient is a 71-year-old male from skilled nursing with history of BPH, depression , hypertension, diabetes mellitus type 2 on insulin, dementia, CK D4, CVA and blindness who presents with new-onset right-sided weakness -Suspect acute ischemic stroke: Consult neurology: Stroke orders -Aphasia due to stroke: Consult speech therapy -Functional quadriplegia: PT OT -UnControlled diabetes mellitus: add Sliding scale insulin -Suspect acute kidney injury/ckd 4, vasomotor nephropathy: consulted nephrology -Hyperkalemia, mild: Treat with insulin and repeat levels -Elevated troponin: Consult Cardiology 02/06/2017: Patient agitated today received IV Ativan and put in restraints Echo pending History Interval history: Patient was seen and examined. Follow-up on current diagnosis. Overnight uneventful. Patient patient is nonverbal. Imaging, nursing note, chart, labs and old chart reviewed. Hospitalist Physical - Physical exam Narrative exam: GEN: Thin frail, debilitated man NAD, sleeping but arousable HEENT: NCAT, EOMI, PERRL, OP Clear NECK: supple, no adenopathy, no thyromegaly, no JVD CVS/HEART: RRR, NORMAL S1S2, NO JVD, pulses present bilaterally CHEST/LUNGS: CTA B, Symmetrical chest expansion, good air entry bilaterally GI/Abdomen: soft, NTND, good bowel sounds, no guarding or rebound /Bladder: no suprapubic tenderness, no CVA or paraspinal tenderness EXT/Skin: no c/c/e, no obvious rash MSK: Contracted legs Neuro: CN 2-12 grossly intact, Doesn't follow commands Psych: calm - Constitutional Vitals: Temp Pulse Resp BP Pulse Ox 97.4 F L 70 18 175/84 100 02/06/17 12:00 02/06/17 12:00 02/05/17 19:26 02/06/17 12:00 02/05/17 19:26 Results - Labs CBC & Chem 7: 02/05/17 01:30 02/04/17 19:37 Labs: Laboratory Last Values WBC 10.7 K/mm3 (4.5-11.0) 02/05/17 01:30 RBC 4.35 M/mm3 (3.65-5.03) 02/05/17 01:30 Hgb 13.8 gm/dl (11.8-15.2) 02/05/17 01:30 Hct 41.3 % (35.5-45.6) 02/05/17 01:30 MCV 95 fl (84-94) H 02/05/17 01:30 MCH 32 pg (28-32) 02/05/17 01:30 MCHC 34 % (32-34) 02/05/17 01:30 RDW 14.6 % (13.2-15.2) 02/05/17 01:30 Plt Count 130 K/mm3 (140-440) L 02/05/17 01:30 Lymph % (Auto) 16.6 % (13.4-35.0) 02/05/17 01:30 [place] % (Auto) 12.2 % (0.0-7.3) H 02/05/17 01:30 Eos % (Auto) 1.0 % (0.0-4.3) 02/05/17 01:30 Baso % (Auto) 0.4 % (0.0-1.8) 02/05/17 01:30 Lymph # 1.8 K/mm3 (1.2-5.4) 02/05/17 01:30 [place] # 1.3 K/mm3 (0.0-0.8) H 02/05/17 01:30 Eos # 0.1 K/mm3 (0.0-0.4) 02/05/17 01:30 Baso # 0.0 K/mm3 (0.0-0.1) 02/05/17 01:30 Seg Neutrophils % 69.8 % (40.0-70.0) 02/05/17 01:30 Seg Neutrophils # 7.4 K/mm3 (1.8-7.7) 02/05/17 01:30 D-Dimer 524.65 ng/mlDDU (0-234) H 02/04/17 23:36 Sodium 135 mmol/L (137-145) L 02/04/17 19:37 Potassium 5.2 mmol/L (3.6-5.0) H 02/04/17 19:37 Chloride 99.7 mmol/L (98-107) 02/04/17 19:37 Carbon Dioxide 19 mmol/L (22-30) L 02/04/17 19:37 Anion Gap 22 mmol/L 02/04/17 19:37 BUN 55 mg/dL (9-20) H 02/04/17 19:37 Creatinine 3.4 mg/dL (0.8-1.5) H 02/04/17 19:37 Estimated GFR 22 ml/min 02/04/17 19:37 BUN/Creatinine Ratio 16 % 02/04/17 19:37 Glucose 284 mg/dL (75-100) H 02/04/17 19:37 POC Glucose 238 (70-105) H 02/06/17 12:12 Calcium 9.3 mg/dL (8.4-10.2) 02/04/17 19:37 Total Bilirubin 0.40 mg/dL (0.1-1.2) 02/04/17 19:37 AST 18 units/L (5-40) 02/04/17 19:37 ALT 15 units/L (7-56) 02/04/17 19:37 Alkaline Phosphatase 106 units/L (35-129) 02/04/17 19:37 Total Creatine Kinase 225 units/L (55-170) H 02/06/17 14:26 CK-MB (CK-2) 6.6 ng/mL (0.0-4.0) H 02/05/17 05:27 CK-MB (CK-2) Rel Index 3.7 (0-4) 02/05/17 05:27 Troponin T 0.069 ng/mL (0.00-0.029) H D 02/05/17 05:27 NT-Pro-B Natriuret Pep 2061 pg/mL (0-900) H 02/06/17 14:26 Total Protein 7.1 g/dL (6.3-8.2) 02/04/17 19:37 Albumin 3.5 g/dL (3.9-5) L 02/04/17 19:37 Albumin/Globulin Ratio 1.0 % 02/04/17 19:37 Triglycerides 73 mg/dL (2-149) 02/04/17 21:17 Cholesterol 179 mg/dL (50-199) 02/04/17 21:17 LDL Cholesterol Direct 77 mg/dL (50-130) 02/04/17 21:17 HDL Cholesterol 88 mg/dL (40-59) H 02/04/17 21:17 Cholesterol/HDL Ratio 2.03 % 02/04/17 21:17 TSH 1.900 mlU/mL (0.270-4.200) 02/04/17 19:37 Urine Color Yellow (Yellow) 02/04/17 21:34 Urine Turbidity Clear (Clear) 02/04/17 21:34 Urine pH 6.0 (5.0-7.0) 02/04/17 21:34 Ur Specific [place] 1.012 (1.003-1.030) 02/04/17 21:34 Urine Protein 100 mg/dl mg/dL (Negative) 02/04/17 21:34 Urine Glucose (UA) >=500 mg/dL (Negative) 02/04/17 21:34 Urine Ketones Neg mg/dL (Negative) 02/04/17 21:34 Urine Blood Neg (Negative) 02/04/17 21:34 Urine Nitrite Neg (Negative) 02/04/17 21:34 Urine Bilirubin Neg (Negative) 02/04/17 21:34 Urine Urobilinogen < 2.0 mg/dL (<2.0) 02/04/17 21:34 Ur Leukocyte Esterase Neg (Negative) 02/04/17 21:34 Urine WBC (Auto) < 1.0 /HPF (0.0-6.0) 02/04/17 21:34 Urine RBC (Auto) 2.0 /HPF (0.0-6.0) 02/04/17 21:34 Urine Bacteria (Auto) 1+ /HPF (Negative) 02/04/17 21:34 Urine Opiates Screen Presumptive negative 02/04/17 21:34 Urine Methadone Screen Presumptive negative 02/04/17 21:34 Ur Barbiturates Screen Presumptive negative 02/04/17 21:34 Ur Phencyclidine Scrn Presumptive negative 02/04/17 21:34 Ur Amphetamines Screen Presumptive negative 02/04/17 21:34 U Benzodiazepines Scrn Presumptive negative 02/04/17 21:34 Urine Cocaine Screen Presumptive negative 02/04/17 21:34 U Marijuana (THC) Screen Presumptive negative 02/04/17 21:34 Drugs of Abuse Note Disclamer 02/04/17 21:34 Plasma/Serum Alcohol < 0.01 gm% (0-0.07) 02/04/17 19:37
[2017-02-06] MEDS: CYMBALTA PO SCH (15:48)
[2017-02-06] MEDS: SODIUM BICARBONATE PO SCH ×3 (15:50→22:52)
[2017-02-06] MEDS ORDERED: KIONEX PR ONE (15:58)
--- NOTE | 2017-02-06 16:08 | Consultation ---
History of Present Illness - Reason for Consult acute renal failure Requesting physician: GERARDO SQUIRES - History of Present Illness Mr Peguero is a 71 y/o M with a PMH of HTN, DM2, Dementia, CKD, CVA, blindness who has been admitted to the [facility] with concerns for stroke after he was sent to the hospital [facility] after noting to have right sided weakness. Pt is currently lethargic and cannot provide any history so all history is obtained from the chart. Pt had a CT brain done that is -ve for acute stroke. Pt was found to have a Cr of 3.4 while in Dec 2015 it was 4.1. No other baseline Cr is available. Pt has been getting 1/2 NS inpatient. His CXR was congested earlier. ROS: Unable to obtain due to patient lethargy Medications and Allergies Allergies Allergy/AdvReac Type Severity Reaction Status Date / Time No Known Allergies Allergy Unverified 01/02/16 17:49 Home Medications Medication Instructions Recorded Confirmed Last Taken Type Hydralazine HCl [Apresoline TAB] 50 mg PO TID 01/02/16 02/05/17 Unknown History Insulin Glargine [Lantus] 58 units SQ QHS 01/02/16 02/05/17 Unknown History Metoprolol [Lopressor TAB] 50 mg PO BID 01/02/16 02/05/17 Unknown History Pantoprazole [Protonix TAB] 40 mg PO QDAY 01/02/16 02/05/17 Unknown History amLODIPine [Norvasc] 10 mg PO DAILY 01/02/16 02/05/17 Unknown History traZODone [Desyrel] 25 mg PO QHS 01/02/16 02/05/17 Unknown History Acetaminophen 650 mg PO Q6H PRN 02/05/17 02/05/17 Unknown History Duloxetine HCl [Cymbalta] 20 mg PO QDAY 02/05/17 02/05/17 Unknown History Insulin Aspart [NovoLOG Flexpen] 12 units SQ AC 02/05/17 02/05/17 Unknown History Insulin Aspart [NovoLOG Flexpen] See Protocol 02/05/17 Unknown History Tamsulosin [Flomax] 0.4 mg PO QHS 02/05/17 02/05/17 Unknown History Active Meds: Active Medications Acetaminophen (Tylenol) 650 mg PO Q4H PRN PRN Reason: Pain, Mild (1-3) Aspirin (Aspirin) 325 mg PO QDAY [facility] Last Admin: 02/06/17 10:48 Dose: Not Given Bisacodyl (Dulcolax) 10 mg [place] QDAY PRN PRN Reason: Constipation Duloxetine HCl (Cymbalta) 30 mg PO QDAY [facility] Last Admin: 02/06/17 15:48 Dose: Not Given Hydralazine HCl (Apresoline) 5 mg IV Q6H PRN PRN Reason: Keep SBP between 160-185 mm Hg Insulin Aspart (Novolog) 0 units SUB-Q Q6HR [facility] PRN Reason: Protocol Last Admin: 02/06/17 15:47 Dose: 3 units Magnesium Hydroxide (Milk Of Magnesia) 30 ml PO Q4H PRN PRN Reason: Constipation Metoprolol Tartrate (Lopressor) 50 mg PO BID [facility] Last Admin: 02/06/17 10:48 Dose: Not Given Ondansetron HCl (Zofran) 4 mg IV Q8H PRN PRN Reason: N/V unrelieved by Regjuliana Pantoprazole Sodium (Protonix) 40 mg PO QDAY [facility] Last Admin: 02/06/17 10:49 Dose: Not Given Pravastatin Sodium (Pravachol) 40 mg PO QHS [facility] Last Admin: 02/05/17 21:36 Dose: 40 mg Sodium Bicarbonate (Sodium Bicarbonate) 650 mg PO TID [facility] Last Admin: 02/06/17 15:50 Dose: Not Given Sodium Chloride (Sodium Chloride Flush Syringe 10 Ml) 10 ml IV PRN PRN PRN Reason: LINE FLUSH Tamsulosin HCl (Flomax) 0.4 mg PO QHS [facility] Last Admin: 02/05/17 21:36 Dose: 0.4 mg Exam - Vital Signs Vital signs: Vital Signs Pulse Ox 100 02/04/17 19:20 - Physical Exam Narrative exam: GE: Lethargic HEENT: Normocephalic Neck: No JVD CVS: RRR Chest: Coarse BS BL Abd: Soft/NT/ND/BS+ Ext: no cce UG: no jensen Results - Lab Results 02/05/17 01:30 02/04/17 19:37 Most recent lab results Calcium 9.3 mg/dL (8.4-10.2) 02/04/17 19:37 Assessment and Plan Acute Kidney injury possibly ATN: Chronic Kidney disease stage 4: -Cr in Dec 2015 was 4.1, now 3.4 but recent baseline unknown -Check Urine studies, Urine PCR, PTH, Renal US -Renally dose all meds and avoid nephrotoxic meds -Jensen ordered Possible CVA with right sided weakness: -CT brain -ve -Neuro on board -May need MRI -Per Neuro Essential hypertension: -Permissive hypertension per Neuro Hyperkalemia: -Rectal Kayxelate ordered -Low k diet when able to eat Hyponatremia, Hypotonic: -D/C 1/2 NS. Would not want hyponatremia julio given concerns for stroke as there is risk of cerbral edema with it -CXR was somewhat congested as well so avoid IVFs Metabolic acidosis: -Start NaHCO3 tabs Hyperlipidemia, chronic: -Statin -Target LDL<70 With this note, I want to thank Dr Squires for allowing me to participate in the care of Mr Peguero, I will continue to follow him quite closely with you. Thank you for the consult. Kyle Chatterjee MD Nephrology, Hypertension, Dialysis, Transplantation Phone no: [phone]
[2017-02-06] MEDS: PRAVACHOL PO SCH ×2 (21:31→22:53)
[2017-02-06] MEDS: FLOMAX PO SCH ×2 (21:31→22:53)
[2017-02-06] MEDS: LOPRESSOR IV SCH (22:54)
--- NOTE | 2017-02-06 23:44 | Consultation ---
REASON FOR EVALUATION: Tachycardia. HISTORY OF PRESENT ILLNESS: The patient is a 71-year-old gentleman who had previous cerebrovascular accident and has been at [facility] and was found with altered mental status and was brought to the Emergency Room and is admitted for further management. The CT scan showed severe atrophy and old left occipital stroke. The patient is known to have had hypertension, diabetes, chronic kidney disease and dementia. The patient is noncommunicative and cannot get any historic details. PHYSICAL EXAMINATION: VITAL SIGNS: Blood pressure 174/81, pulse 73 and he had a heart rate of 120 during the night. NECK: Supple. No thyromegaly. CHEST: Symmetrical. LUNGS: Essentially clear. CARDIOVASCULAR: S1 and S2 are heard well. No S3. No significant murmurs are noted. ABDOMEN: Soft. EXTREMITIES: No significant edema. CENTRAL NERVOUS SYSTEM: The patient has right hemiplegia. LABORATORY DATA: Blood sugar 197. WBC was 10.7, hemoglobin 13.8 and hematocrit 41.3. ADDENDUM LABORATORY DATA: Cardiac rhythm strips are reviewed. The patient was noted to have sinus tachycardia. WBC 10.7, hemoglobin 13.8, hematocrit 41.3. Troponin 0.069, total cholesterol 179, LDL 77, HDL 88. Sodium 135, potassium 5.2, BUN 55, creatinine 3.4. IMPRESSION: 1. Sinus tachycardia, etiology uncertain. 2. History of hypertension and diabetes. 3. Previous cerebrovascular accident with right hemiplegia. The patient is a 71-year-old gentleman seen for cardiac evaluation because of sinus tachycardia. The etiology of the tachycardia is uncertain. Cardiac examination is satisfactory. No sustained complex arrhythmias were noted. PLAN: At this time is to obtain an echocardiogram for further cardiac evaluation. Neurologic evaluation is in progress. Overall, prognosis is guarded because of multiple medical issues the patient has. Thank you for allowing me to participate in the care of this gentleman. JOB# [id number] ERICK/MIKE
[2017-02-07] MEDS: NOVOLOG SUB-Q SCH ×8 (00:51→21:54)
[2017-02-07] MEDS: LOPRESSOR IV SCH ×4 (00:52→17:19)
--- NOTE | 2017-02-07 09:25 | Progress Note ---
Assessment and Plan Acute Kidney injury possibly ATN: Chronic Kidney disease stage 4: -Cr in Dec 2015 was 4.1, now 3.4 but recent baseline unknown -no labs this AM, BMP ordered STAT -renal US reading is pending -will check SPEP and UPEP for proteinuria -Renally dose all meds and avoid nephrotoxic meds Possible CVA with right sided weakness: -CT brain -ve -Per Neuro Essential hypertension: -Permissive hypertension per Neuro - can start Amlodipine when ok with neuro Hyperkalemia: -BMP as above -Low k diet when able to eat Hyponatremia, Hypotonic: -repeated labs are pending -02/07 NS was stopped Metabolic acidosis: -on NaHCO3 tabs Hyperlipidemia, chronic: -Statin Subjective Date of service: 02/07/17 Principal diagnosis: acute renal failure Interval history: patient was in ECHO this AM Objective - Vital Signs Vital signs: Vital Signs - 12hr 02/06/17 02/06/17 02/07/17 22:00 22:54 00:18 Temperature 97.5 F L Pulse Rate 131 H 71 Pulse Rate [ 131 H From Monitor] Respiratory 18 Rate Blood Pressure 187/111 165/87 Blood Pressure [Right] O2 Sat by Pulse 98 Oximetry 02/07/17 02/07/17 05:42 08:31 Temperature 97.4 F L 97.4 F L Pulse Rate 138 H 78 Pulse Rate [ From Monitor] Respiratory 18 20 Rate Blood Pressure 171/113 Blood Pressure 178/91 [Right] O2 Sat by Pulse 99 Oximetry - Lab 02/05/17 01:30 02/04/17 19:37 Most recent lab results Calcium 9.3 mg/dL (8.4-10.2) 02/04/17 19:37
--- NOTE | 2017-02-07 09:41 | Ultrasound Report ---
ULTRASOUND RENAL BILATERAL HISTORY: Chronic kidney disease, acute renal failure. TECHNIQUE: transabdominal ultrasound with color Doppler interrogation. FINDINGS: The kidneys are normal size, contour and position. There is increased renal parenchymal echotexture bilaterally. Corticomedullary differentiation is preserved. No evidence for cystic disease, mass, calculus hydronephrosis or perinephric fluid. The views of the bladder and the region of the ureters appear normal. IMPRESSION: Renal parenchymal disease.
[2017-02-07] MEDS: SODIUM BICARBONATE PO SCH ×3 (09:55→21:55)
[2017-02-07] MEDS: ASPIRIN PO SCH (09:55)
[2017-02-07] MEDS: PROTONIX PO SCH (09:55)
[2017-02-07] MEDS: CYMBALTA PO SCH (09:55)
[2017-02-07] MEDS ORDERED: NORVASC PO SCH (10:00)
[2017-02-07 13:29] LABS: Calcium 9.1 mg/dL (8.4-10.2)
--- NOTE | 2017-02-07 13:51 | Progress Note ---
Assessment and Plan Assessment: Status post cerebrovascular accident with right hemiplegia Altered mental status Elevated troponin Sinus tachycardia Hypertension Diabetes Dementia CKD Plan: Echo showed EF 45-50%. Continue IV metoprolol and close monitoring of HR and BP. The patient has been seen in conjunction with Dr. Mahan who agrees with the assessment and plan of care. Subjective Date of service: 02/07/17 Principal diagnosis: acute renal failure, sinus tachycardia Interval history: The patient is resting in bed. No verbal response. Sinus tach on the monitor. Objective Last Vital Signs Temp 97.3 F L 02/07/17 11:28 Pulse 133 H 02/07/17 13:10 Resp 20 02/07/17 11:28 BP 147/97 02/07/17 11:28 Pulse Ox 100 02/07/17 11:28 - Physical Examination General: No Apparent Distress (non-verbal, no acute distress) Neck: Positive: neck supple, trachea midline Cardiac: Positive: Reg Rate and Rhythm, S1/S2 Lungs: Positive: Decreased Breath Sounds Neuro: Positive: Other (no verbal response, right hemiplegia) Abdomen: Positive: Soft Skin: Positive: Clear. Negative: Rash Extremities: Present: normal. Absent: edema - Labs and Meds Comprehensive Metabolic Panel 02/07/17 Range/Units 11:36 Sodium 139 (137-145) mmol/L Potassium 4.7 (3.6-5.0) mmol/L Chloride 100.0 (98-107) mmol/L Carbon Dioxide 22 (22-30) mmol/L BUN 49 H (9-20) mg/dL Creatinine 3.2 H (0.8-1.5) mg/dL Glucose 210 H (75-100) mg/dL Calcium 9.1 (8.4-10.2) mg/dL - Imaging and Cardiology EKG: image reviewed Echo: report reviewed (EF 45-50%, grade 2 diastolic dysfunction ) - Telemetry EKG Rhythm: Sinus Tachycardia
--- NOTE | 2017-02-07 15:14 | Progress Note ---
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 Back to [place] in 1-2 days History Interval history: Patient was seen and examined. Follow-up on current diagnosis. Overnight uneventful. Patient patient is nonverbal. Imaging, nursing note, chart, labs and old chart reviewed. Hospitalist Physical - Physical exam Narrative exam: GEN: Thin frail, debilitated man NAD, sleeping but arousable HEENT: NCAT, EOMI, PERRL, OP Clear NECK: supple, no adenopathy, no thyromegaly, no JVD CVS/HEART: RRR, NORMAL S1S2, NO JVD, pulses present bilaterally CHEST/LUNGS: CTA B, Symmetrical chest expansion, good air entry bilaterally GI/Abdomen: soft, NTND, good bowel sounds, no guarding or rebound /Bladder: no suprapubic tenderness, no CVA or paraspinal tenderness EXT/Skin: no c/c/e, no obvious rash MSK: Contracted legs Neuro: CN 2-12 grossly intact, Doesn't follow commands Psych: calm - Constitutional Vitals: Temp Pulse Resp BP Pulse Ox 97.3 F L 133 H 20 147/97 100 02/07/17 11:28 02/07/17 13:10 02/07/17 11:28 02/07/17 11:28 02/07/17 11:28 Results - Labs CBC & Chem 7: 02/05/17 01:30 02/07/17 11:36 Labs: Laboratory Last Values WBC 10.7 K/mm3 (4.5-11.0) 02/05/17 01:30 RBC 4.35 M/mm3 (3.65-5.03) 02/05/17 01:30 Hgb 13.8 gm/dl (11.8-15.2) 02/05/17 01:30 Hct 41.3 % (35.5-45.6) 02/05/17 01:30 MCV 95 fl (84-94) H 02/05/17 01:30 MCH 32 pg (28-32) 02/05/17 01:30 MCHC 34 % (32-34) 02/05/17 01:30 RDW 14.6 % (13.2-15.2) 02/05/17 01:30 Plt Count 130 K/mm3 (140-440) L 02/05/17 01:30 Lymph % (Auto) 16.6 % (13.4-35.0) 02/05/17 01:30 [place] % (Auto) 12.2 % (0.0-7.3) H 02/05/17 01:30 Eos % (Auto) 1.0 % (0.0-4.3) 02/05/17 01:30 Baso % (Auto) 0.4 % (0.0-1.8) 02/05/17 01:30 Lymph # 1.8 K/mm3 (1.2-5.4) 02/05/17 01:30 [place] # 1.3 K/mm3 (0.0-0.8) H 02/05/17 01:30 Eos # 0.1 K/mm3 (0.0-0.4) 02/05/17 01:30 Baso # 0.0 K/mm3 (0.0-0.1) 02/05/17 01:30 Seg Neutrophils % 69.8 % (40.0-70.0) 02/05/17 01:30 Seg Neutrophils # 7.4 K/mm3 (1.8-7.7) 02/05/17 01:30 D-Dimer 524.65 ng/mlDDU (0-234) H 02/04/17 23:36 Sodium 139 mmol/L (137-145) 02/07/17 11:36 Potassium 4.7 mmol/L (3.6-5.0) 02/07/17 11:36 Chloride 100.0 mmol/L (98-107) 02/07/17 11:36 Carbon Dioxide 22 mmol/L (22-30) 02/07/17 11:36 Anion Gap 22 mmol/L 02/07/17 11:36 BUN 49 mg/dL (9-20) H 02/07/17 11:36 Creatinine 3.2 mg/dL (0.8-1.5) H 02/07/17 11:36 Estimated GFR 23 ml/min 02/07/17 11:36 BUN/Creatinine Ratio 15 % 02/07/17 11:36 Glucose 210 mg/dL (75-100) H 02/07/17 11:36 POC Glucose 225 (70-105) H 02/07/17 06:24 Calcium 9.1 mg/dL (8.4-10.2) 02/07/17 11:36 Total Bilirubin 0.40 mg/dL (0.1-1.2) 02/04/17 19:37 AST 18 units/L (5-40) 02/04/17 19:37 ALT 15 units/L (7-56) 02/04/17 19:37 Alkaline Phosphatase 106 units/L (35-129) 02/04/17 19:37 Total Creatine Kinase 225 units/L (55-170) H 02/06/17 14:26 CK-MB (CK-2) 6.6 ng/mL (0.0-4.0) H 02/05/17 05:27 CK-MB (CK-2) Rel Index 3.7 (0-4) 02/05/17 05:27 Troponin T 0.069 ng/mL (0.00-0.029) H D 02/05/17 05:27 NT-Pro-B Natriuret Pep 2061 pg/mL (0-900) H 02/06/17 14:26 Total Protein 7.1 g/dL (6.3-8.2) 02/04/17 19:37 Albumin 3.5 g/dL (3.9-5) L 02/04/17 19:37 Albumin/Globulin Ratio 1.0 % 02/04/17 19:37 Triglycerides 73 mg/dL (2-149) 02/04/17 21:17 Cholesterol 179 mg/dL (50-199) 02/04/17 21:17 LDL Cholesterol Direct 77 mg/dL (50-130) 02/04/17 21:17 HDL Cholesterol 88 mg/dL (40-59) H 02/04/17 21:17 Cholesterol/HDL Ratio 2.03 % 02/04/17 21:17 TSH 1.900 mlU/mL (0.270-4.200) 02/04/17 19:37 Urine Color Yellow (Yellow) 02/04/17 21:34 Urine Turbidity Clear (Clear) 02/04/17 21:34 Urine pH 6.0 (5.0-7.0) 02/04/17 21:34 Ur Specific [place] 1.012 (1.003-1.030) 02/04/17 21:34 Urine Protein 100 mg/dl mg/dL (Negative) 02/04/17 21:34 Urine Glucose (UA) >=500 mg/dL (Negative) 02/04/17 21:34 Urine Ketones Neg mg/dL (Negative) 02/04/17 21:34 Urine Blood Neg (Negative) 02/04/17 21:34 Urine Nitrite Neg (Negative) 02/04/17 21:34 Urine Bilirubin Neg (Negative) 02/04/17 21:34 Urine Urobilinogen < 2.0 mg/dL (<2.0) 02/04/17 21:34 Ur Leukocyte Esterase Neg (Negative) 02/04/17 21:34 Urine WBC (Auto) < 1.0 /HPF (0.0-6.0) 02/04/17 21:34 Urine RBC (Auto) 2.0 /HPF (0.0-6.0) 02/04/17 21:34 Urine Bacteria (Auto) 1+ /HPF (Negative) 02/04/17 21:34 Urine Opiates Screen Presumptive negative 02/04/17 21:34 Urine Methadone Screen Presumptive negative 02/04/17 21:34 Ur Barbiturates Screen Presumptive negative 02/04/17 21:34 Ur Phencyclidine Scrn Presumptive negative 02/04/17 21:34 Ur Amphetamines Screen Presumptive negative 02/04/17 21:34 U Benzodiazepines Scrn Presumptive negative 02/04/17 21:34 Urine Cocaine Screen Presumptive negative 02/04/17 21:34 U Marijuana (THC) Screen Presumptive negative 02/04/17 21:34 Drugs of Abuse Note Disclamer 02/04/17 21:34 Plasma/Serum Alcohol < 0.01 gm% (0-0.07) 02/04/17 19:37
[2017-02-07] MEDS: PRAVACHOL PO SCH (21:55)
[2017-02-07] MEDS: FLOMAX PO SCH (21:55)
[2017-02-08] MEDS: LOPRESSOR IV SCH ×5 (01:32→23:37)
[2017-02-08 06:45] LABS: Basophils % (Auto) 0.3 % (0.0-1.8); Eosinophils # (Auto) 0.1 K/mm3 (0.0-0.4); Eosinophils % (Auto) 1.4 % (0.0-4.3); Hematocrit 37.2 % (35.5-45.6); Hemoglobin 12.3 gm/dl (11.8-15.2); Lymphocytes # (Auto) 1.9 K/mm3 (1.2-5.4); Lymphocytes % (Auto) 23.1 % (13.4-35.0); Mean Corpuscular HGB Conc 33 % (32-34); Mean Corpuscular Hemoglobin 31 pg (28-32); Mean Corpuscular Volume 94 fl (84-94); Monocytes # (Auto) 1.2 K/mm3 (0.0-0.8); Monocytes % (Auto) 14.5 % (0.0-7.3); Platelet Count 124 K/mm3 (140-440); Red Blood Count 3.94 M/mm3 (3.65-5.03); Red Cell Distribution Width 14.1 % (13.2-15.2)
[2017-02-08 07:07] LABS: Calcium 8.7 mg/dL (8.4-10.2)
[2017-02-08] MEDS: ASPIRIN PO SCH (09:49)
[2017-02-08] MEDS: SODIUM BICARBONATE PO SCH ×3 (09:49→20:06)
[2017-02-08] MEDS: NOVOLOG SUB-Q SCH ×4 (09:49→21:22)
[2017-02-08] MEDS: PROTONIX PO SCH (09:49)
[2017-02-08] MEDS: NORMODYNE IV PRN (09:50)
[2017-02-08] MEDS: CYMBALTA PO SCH (10:00)
--- NOTE | 2017-02-08 10:59 | Progress Note ---
Assessment and Plan - Patient Problems (1) Renal failure (ARF), acute on chronic Current Visit: Yes Status: Acute Qualifiers: Acute renal failure type: unspecified Chronic kidney disease stage: unspecified stage Qualified Code(s): N17.9 - Acute kidney failure, unspecified ; N18.9 - Chronic kidney disease, unspecified; N18.9 - Chronic kidney disease, unspecified Plan to address problem: Renal function reviewed. Serum creatinine today is stable at 3.3 Renal ultrasound reviewed- renal parenchymal disease UPEP and SPEP labs to assess Proteinuria are pending Avoid Nephrotoxic agents Renally dose medications Monitor I/O's Obtain daily weights Monitor renal function closely (2) CVA (cerebrovascular accident) Current Visit: Yes Status: Acute Plan to address problem: Carotid Doppler result pending MRI of Brain to be completed Neurology onboard (3) Metabolic acidosis Current Visit: Yes Status: Acute Plan to address problem: On Sodium Bicarbonate 650 mg po TID (4) Hypertension Current Visit: Yes Status: Acute Plan to address problem: Hypertensive with Tachycardia on Metoprolol 5 mg IV every 6 hours as per Cardiology (5) Hyperglycemia Current Visit: Yes Status: Acute Plan to address problem: On insulin as per Primary Subjective Date of service: 02/08/17 Principal diagnosis: acute renal failure, sinus tachycardia Interval history: Patient seen lying in bed. Patient has delayed response to questions. Blind in right eye. Objective - Vital Signs Vital signs: Vital Signs - 12hr 02/08/17 02/08/17 02/08/17 00:39 01:32 04:42 Temperature 98.1 F 98.3 F Pulse Rate 156 H 156 H 88 Respiratory 22 22 Rate Blood Pressure 166/113 166/113 173/92 O2 Sat by Pulse 100 100 Oximetry 02/08/17 02/08/17 02/08/17 04:49 05:49 09:50 Temperature Pulse Rate 76 88 138 H Respiratory Rate Blood Pressure 173/92 175/114 O2 Sat by Pulse Oximetry - General Appearance General appearance: well-developed, appears stated age EENT: ATNC, other (Blind in right eye) Neck: no JVD, supple Respiratory: Present: Decreased Breath Sounds Cardiology: tachycardia, S1S2 Gastrointestinal: normoactive bowel sounds Integumentary: warm and dry Neurologic: disoriented Musculoskeletal: other (No edema) - Lab 02/08/17 05:42 02/08/17 05:42 Most recent lab results Calcium 8.7 mg/dL (8.4-10.2) 02/08/17 05:42 Phosphorus 3.50 mg/dL (2.5-4.5) 02/08/17 05:42
--- NOTE | 2017-02-08 12:25 | Progress Note ---
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 Back to [place] in 1-2 days 02/08/2017: MRI pending. History Interval history: Patient was seen and examined. Follow-up on current diagnosis. Overnight uneventful. Patient patient is nonverbal. Imaging, nursing note, chart, labs and old chart reviewed. Hospitalist Physical - Physical exam Narrative exam: GEN: Thin frail, debilitated man NAD, sleeping but arousable HEENT: NCAT, EOMI, PERRL, OP Clear NECK: supple, no adenopathy, no thyromegaly, no JVD CVS/HEART: RRR, NORMAL S1S2, NO JVD, pulses present bilaterally CHEST/LUNGS: CTA B, Symmetrical chest expansion, good air entry bilaterally GI/Abdomen: soft, NTND, good bowel sounds, no guarding or rebound /Bladder: no suprapubic tenderness, no CVA or paraspinal tenderness EXT/Skin: no c/c/e, no obvious rash MSK: Contracted legs Neuro: CN 2-12 grossly intact, Doesn't follow commands Psych: calm - Constitutional Vitals: Temp Pulse Resp BP Pulse Ox 98.3 F 134 H 19 148/97 100 02/08/17 04:42 02/08/17 11:43 02/08/17 10:00 02/08/17 11:43 02/08/17 04:42 Results - Labs CBC & Chem 7: 02/08/17 05:42 02/08/17 05:42 Labs: Laboratory Last Values WBC 8.4 K/mm3 (4.5-11.0) 02/08/17 05:42 RBC 3.94 M/mm3 (3.65-5.03) 02/08/17 05:42 Hgb 12.3 gm/dl (11.8-15.2) 02/08/17 05:42 Hct 37.2 % (35.5-45.6) 02/08/17 05:42 MCV 94 fl (84-94) 02/08/17 05:42 MCH 31 pg (28-32) 02/08/17 05:42 MCHC 33 % (32-34) 02/08/17 05:42 RDW 14.1 % (13.2-15.2) 02/08/17 05:42 Plt Count 124 K/mm3 (140-440) L 02/08/17 05:42 Lymph % (Auto) 23.1 % (13.4-35.0) 02/08/17 05:42 [place] % (Auto) 14.5 % (0.0-7.3) H 02/08/17 05:42 Eos % (Auto) 1.4 % (0.0-4.3) 02/08/17 05:42 Baso % (Auto) 0.3 % (0.0-1.8) 02/08/17 05:42 Lymph # 1.9 K/mm3 (1.2-5.4) 02/08/17 05:42 [place] # 1.2 K/mm3 (0.0-0.8) H 02/08/17 05:42 Eos # 0.1 K/mm3 (0.0-0.4) 02/08/17 05:42 Baso # 0.0 K/mm3 (0.0-0.1) 02/08/17 05:42 Seg Neutrophils % 60.7 % (40.0-70.0) 02/08/17 05:42 Seg Neutrophils # 5.1 K/mm3 (1.8-7.7) 02/08/17 05:42 D-Dimer 524.65 ng/mlDDU (0-234) H 02/04/17 23:36 Sodium 142 mmol/L (137-145) 02/08/17 05:42 Potassium 4.4 mmol/L (3.6-5.0) 02/08/17 05:42 Chloride 103.9 mmol/L (98-107) 02/08/17 05:42 Carbon Dioxide 21 mmol/L (22-30) L 02/08/17 05:42 Anion Gap 22 mmol/L 02/08/17 05:42 BUN 49 mg/dL (9-20) H 02/08/17 05:42 Creatinine 3.3 mg/dL (0.8-1.5) H 02/08/17 05:42 Estimated GFR 23 ml/min 02/08/17 05:42 BUN/Creatinine Ratio 15 % 02/08/17 05:42 Glucose 202 mg/dL (75-100) H 02/08/17 05:42 POC Glucose 214 (70-105) H 02/08/17 07:49 Calcium 8.7 mg/dL (8.4-10.2) 02/08/17 05:42 Phosphorus 3.50 mg/dL (2.5-4.5) 02/08/17 05:42 Total Bilirubin 0.40 mg/dL (0.1-1.2) 02/04/17 19:37 AST 18 units/L (5-40) 02/04/17 19:37 ALT 15 units/L (7-56) 02/04/17 19:37 Alkaline Phosphatase 106 units/L (35-129) 02/04/17 19:37 Total Creatine Kinase 225 units/L (55-170) H 02/06/17 14:26 CK-MB (CK-2) 6.6 ng/mL (0.0-4.0) H 02/05/17 05:27 CK-MB (CK-2) Rel Index 3.7 (0-4) 02/05/17 05:27 Troponin T 0.069 ng/mL (0.00-0.029) H D 02/05/17 05:27 NT-Pro-B Natriuret Pep 2061 pg/mL (0-900) H 02/06/17 14:26 Total Protein 7.1 g/dL (6.3-8.2) 02/04/17 19:37 Albumin 3.5 g/dL (3.9-5) L 02/04/17 19:37 Albumin/Globulin Ratio 1.0 % 02/04/17 19:37 Triglycerides 73 mg/dL (2-149) 02/04/17 21:17 Cholesterol 179 mg/dL (50-199) 02/04/17 21:17 LDL Cholesterol Direct 77 mg/dL (50-130) 02/04/17 21:17 HDL Cholesterol 88 mg/dL (40-59) H 02/04/17 21:17 Cholesterol/HDL Ratio 2.03 % 02/04/17 21:17 TSH 1.900 mlU/mL (0.270-4.200) 02/04/17 19:37 Urine Color Yellow (Yellow) 02/04/17 21:34 Urine Turbidity Clear (Clear) 02/04/17 21:34 Urine pH 6.0 (5.0-7.0) 02/04/17 21:34 Ur Specific [place] 1.012 (1.003-1.030) 02/04/17 21:34 Urine Protein 100 mg/dl mg/dL (Negative) 02/04/17 21:34 Urine Glucose (UA) >=500 mg/dL (Negative) 02/04/17 21:34 Urine Ketones Neg mg/dL (Negative) 02/04/17 21:34 Urine Blood Neg (Negative) 02/04/17 21:34 Urine Nitrite Neg (Negative) 02/04/17 21:34 Urine Bilirubin Neg (Negative) 02/04/17 21:34 Urine Urobilinogen < 2.0 mg/dL (<2.0) 02/04/17 21:34 Ur Leukocyte Esterase Neg (Negative) 02/04/17 21:34 Urine WBC (Auto) < 1.0 /HPF (0.0-6.0) 02/04/17 21:34 Urine RBC (Auto) 2.0 /HPF (0.0-6.0) 02/04/17 21:34 Urine Bacteria (Auto) 1+ /HPF (Negative) 02/04/17 21:34 Urine Opiates Screen Presumptive negative 02/04/17 21:34 Urine Methadone Screen Presumptive negative 02/04/17 21:34 Ur Barbiturates Screen Presumptive negative 02/04/17 21:34 Ur Phencyclidine Scrn Presumptive negative 02/04/17 21:34 Ur Amphetamines Screen Presumptive negative 02/04/17 21:34 U Benzodiazepines Scrn Presumptive negative 02/04/17 21:34 Urine Cocaine Screen Presumptive negative 02/04/17 21:34 U Marijuana (THC) Screen Presumptive negative 02/04/17 21:34 Drugs of Abuse Note Disclamer 02/04/17 21:34 Plasma/Serum Alcohol < 0.01 gm% (0-0.07) 02/04/17 19:37
--- NOTE | 2017-02-08 14:13 | Progress Note ---
Assessment and Plan Assessment: Status post cerebrovascular accident with right hemiplegia Altered mental status Elevated troponin Sinus tachycardia Hypertension Diabetes Dementia CKD Plan: Echo showed EF 45-50%. Continue IV metoprolol and close monitoring of HR and BP. The patient has been seen in conjunction with Dr. Mahan who agrees with the assessment and plan of care. Subjective Date of service: 02/08/17 Principal diagnosis: acute renal failure, sinus tachycardia Interval history: Pt. resting in bed. No verbal response. No acute distress noted. Sinus tach on the monitor. Objective Last Vital Signs Temp 98.8 F 02/08/17 12:11 Pulse 131 H 02/08/17 12:12 Resp 18 02/08/17 12:11 BP 139/97 02/08/17 12:12 Pulse Ox 99 02/08/17 12:12 - Physical Examination General: No Apparent Distress (non-verbal, no acute distress) Neck: Positive: neck supple, trachea midline Cardiac: Positive: Regular Rhythm, S1/S2, Tachycardia Lungs: Positive: Decreased Breath Sounds Neuro: Positive: Other (no verbal response, right hemiplegia) Abdomen: Positive: Soft Skin: Positive: Clear. Negative: Rash Extremities: Present: normal. Absent: edema - Labs and Meds CBC 02/08/17 Range/Units 05:42 WBC 8.4 (4.5-11.0) K/mm3 RBC 3.94 (3.65-5.03) M/mm3 Hgb 12.3 (11.8-15.2) gm/dl Hct 37.2 (35.5-45.6) % Plt Count 124 L (140-440) K/mm3 Lymph # 1.9 (1.2-5.4) K/mm3 [place] # 1.2 H (0.0-0.8) K/mm3 Eos # 0.1 (0.0-0.4) K/mm3 Baso # 0.0 (0.0-0.1) K/mm3 Comprehensive Metabolic Panel 02/08/17 Range/Units 05:42 Sodium 142 (137-145) mmol/L Potassium 4.4 (3.6-5.0) mmol/L Chloride 103.9 (98-107) mmol/L Carbon Dioxide 21 L (22-30) mmol/L BUN 49 H (9-20) mg/dL Creatinine 3.3 H (0.8-1.5) mg/dL Glucose 202 H (75-100) mg/dL Calcium 8.7 (8.4-10.2) mg/dL - Imaging and Cardiology EKG: image reviewed Echo: report reviewed (EF 45-50%, grade 2 diastolic dysfunction ) - Telemetry EKG Rhythm: Sinus Tachycardia
[2017-02-08] MEDS: ATIVAN IV PRN ×2 (14:28→23:37)
--- NOTE | 2017-02-08 15:02 | Vascular Lab Report ---
CAROTID DUPLEX STUDY: RIGHT PSVEDV CCA PROX:528 CCA DIST:4713 ICA PROX:4314 ICA MID:6423 ICA DIST:5921 ECA: 397 VERT: 30 8 LEFT PSVEDV CCA PROX:5811 CCA DIST:4510 ICA PROX:329 ICA MID:6021 ICA DIST:4314 ECA: 475 VERT: 37 10 REASON FOR EXAM: Stroke. COMMENTS ON THE RIGHT: Doppler frequency analysis is consistent with 16 to 49 percent diameter reduction of the internal carotid artery. Scattered plaque is seen in the bulb. The common carotid artery is patent. The external carotid artery is patent. The vertebral artery has antegrade flow. COMMENTS ON THE LEFT: Doppler frequency analysis is consistent with 16 to 49 percent diameter reduction of the internal carotid artery. A small amount of plaque is seen in the bulb. The common carotid artery is patent. The external carotid artery is patent. The vertebral artery has antegrade flow. IMPRESSION: Less than 50% diameter reduction in the internal carotid arteries bilaterally. Consider repeat carotid artery duplex in 12 months.
--- NOTE | 2017-02-08 18:49 | Magnetic Resonance Report ---
FINAL REPORT PROCEDURE: MR BRAIN WO CON TECHNIQUE: Magnetic resonance imaging of the brain was performed without contrast material. HISTORY: stroke COMPARISON: CT scan 02/04/2017 FINDINGS: Multifocal T2 foci in the high left parietal frontal portions of medial occipital brain consistent with multifocal lacunar infarcts with diffusion restriction identified. Consider shower of emboli. Encephalomalacia in the posterior medial left occipital lobe. Moderate T2 signal periventricular locations and deep white matter consistent with chronic microischemic changes and chronic lacunar changes. Cavum septum pellucidum. No acute intracranial bleed seen. Ventricles not enlarged IMPRESSION: Multifocal acute infarcts in the cortical margins of the high left parietal left frontal left occipital brain
[2017-02-08] MEDS: FLOMAX PO SCH (21:22)
[2017-02-08] MEDS: PRAVACHOL PO SCH (21:22)
[2017-02-09] MEDS: NORMODYNE IV PRN ×2 (01:55→22:23)
[2017-02-09] MEDS: LOPRESSOR IV SCH (05:31)
[2017-02-09 05:40] LABS: Basophils # (Auto) 0.1 K/mm3 (0.0-0.1); Basophils % (Auto) 0.5 % (0.0-1.8); Eosinophils # (Auto) 0.1 K/mm3 (0.0-0.4); Eosinophils % (Auto) 1.6 % (0.0-4.3); Hematocrit 37.9 % (35.5-45.6); Hemoglobin 12.8 gm/dl (11.8-15.2); Lymphocytes # (Auto) 1.7 K/mm3 (1.2-5.4); Lymphocytes % (Auto) 18.4 % (13.4-35.0); Mean Corpuscular HGB Conc 34 % (32-34); Mean Corpuscular Hemoglobin 32 pg (28-32); Mean Corpuscular Volume 95 fl (84-94); Monocytes # (Auto) 1.2 K/mm3 (0.0-0.8); Monocytes % (Auto) 12.9 % (0.0-7.3); Platelet Count 119 K/mm3 (140-440); Red Blood Count 4.01 M/mm3 (3.65-5.03); Red Cell Distribution Width 14.4 % (13.2-15.2)
[2017-02-09 05:50] LABS: Calcium 8.7 mg/dL (8.4-10.2)
[2017-02-09] MEDS: SODIUM BICARBONATE PO SCH ×3 (09:45→22:23)
[2017-02-09] MEDS: CYMBALTA PO SCH (09:45)
[2017-02-09] MEDS: ASPIRIN PO SCH (09:45)
[2017-02-09] MEDS: PROTONIX PO SCH (09:45)
[2017-02-09] MEDS: NOVOLOG SUB-Q SCH ×4 (09:46→22:23)
[2017-02-09] MEDS ORDERED: KIONEX PO ONE (10:30)
--- NOTE | 2017-02-09 11:39 | Progress Note ---
Assessment and Plan Assessment: Status post cerebrovascular accident with right hemiplegia Altered mental status Elevated troponin Sinus tachycardia Hypertension Diabetes Dementia CKD Plan: Will change metoprolol to PO. Elevated troponin likely due to CKD. The patient is not a candidate for invasive cardiac management. Will see as needed. The patient has been seen in conjunction with Dr. Mahan who agrees with the assessment and plan of care. Subjective Date of service: 02/09/17 Principal diagnosis: acute renal failure, sinus tachycardia Interval history: The patient is resting in bed. Pt. arousable but no verbal response. No acute distress noted. Sinus tach on the monitor. Objective Last Vital Signs Temp 97.5 F L 02/09/17 07:42 Pulse 65 02/09/17 07:42 Resp 12 02/09/17 07:42 BP 168/85 02/09/17 07:42 Pulse Ox 98 02/09/17 07:42 - Physical Examination General: No Apparent Distress (non-verbal, no acute distress) Neck: Positive: neck supple, trachea midline Cardiac: Positive: Regular Rhythm, S1/S2, Tachycardia Lungs: Positive: clear to auscultation Neuro: Positive: Other (no verbal response, right hemiplegia) Abdomen: Positive: Soft Skin: Positive: Clear. Negative: Rash Extremities: Present: normal. Absent: edema - Labs and Meds CBC 02/09/17 Range/Units 05:08 WBC 9.3 (4.5-11.0) K/mm3 RBC 4.01 (3.65-5.03) M/mm3 Hgb 12.8 (11.8-15.2) gm/dl Hct 37.9 (35.5-45.6) % Plt Count 119 L (140-440) K/mm3 Lymph # 1.7 (1.2-5.4) K/mm3 George # 1.2 H (0.0-0.8) K/mm3 Eos # 0.1 (0.0-0.4) K/mm3 Baso # 0.1 (0.0-0.1) K/mm3 Comprehensive Metabolic Panel 02/09/17 Range/Units 05:08 Sodium 140 (137-145) mmol/L Potassium 5.1 H (3.6-5.0) mmol/L Chloride 104.4 (98-107) mmol/L Carbon Dioxide 21 L (22-30) mmol/L BUN 47 H (9-20) mg/dL Creatinine 3.6 H (0.8-1.5) mg/dL Glucose 356 H (75-100) mg/dL Calcium 8.7 (8.4-10.2) mg/dL - Imaging and Cardiology EKG: image reviewed Echo: report reviewed (EF 45-50%, grade 2 diastolic dysfunction ) - Telemetry EKG Rhythm: Sinus Tachycardia
[2017-02-09] MEDS: LOPRESSOR PO SCH ×2 (12:45→22:23)
--- NOTE | 2017-02-09 14:38 | Progress Note ---
Assessment and Plan Acute Kidney injury possibly ATN: Chronic Kidney disease stage 4: -Cr in Dec 2015 was 4.1, now 3.4 but recent baseline unknown -Renal US shows chronicity. -Cr slightly up, monitor closely. Albumin X 3 ordered. -Renally dose all meds and avoid nephrotoxic meds -Need UOP charting. CVA with right sided weakness: -CT brain -ve -Neuro on board -MRI showed acute stroke -Per Neuro Essential hypertension: -Permissive hypertension per Neuro Hyperkalemia: -Kayxelate ordered. Hyponatremia, Hypotonic: -Improved. Metabolic acidosis: -On NaHCO3 tabs Hyperlipidemia, chronic: -Statin -Target LDL<70 Kyle Chatterjee MD Nephrology, Hypertension, Dialysis, Transplantation Phone no: [phone] Subjective Date of service: 02/09/17 Principal diagnosis: acute renal failure, sinus tachycardia Interval history: Awake, knows name. Objective - Exam Narrative Exam: GE: Awake HEENT: Normocephalic Neck: No JVD CVS: RRR Chest: Coarse BS BL Abd: Soft/NT/ND/BS+ Ext: no cce Neuro: Awake - Vital Signs Vital signs: Vital Signs - 12hr 02/09/17 02/09/17 02/09/17 05:05 05:31 07:42 Temperature 97.6 F 97.5 F L Pulse Rate 74 74 65 Respiratory 20 12 Rate Blood Pressure 173/88 173/88 168/85 O2 Sat by Pulse 98 98 Oximetry 02/09/17 02/09/17 10:00 12:45 Temperature Pulse Rate 71 67 Respiratory Rate Blood Pressure 162/88 O2 Sat by Pulse Oximetry - Lab 02/09/17 05:08 02/09/17 05:08 Most recent lab results Calcium 8.7 mg/dL (8.4-10.2) 02/09/17 05:08 Phosphorus 3.90 mg/dL (2.5-4.5) 02/09/17 05:08
--- NOTE | 2017-02-09 15:29 | Progress Note ---
Assessment and Plan Assessment and plan: Patient is a 71-year-old male from skilled nursing with history of BPH, depression , hypertension, diabetes mellitus type 2 on insulin, dementia, CK D4, CVA and blindness who presents with new-onset right-sided weakness -Suspect acute ischemic stroke: Consult neurology: Stroke orders -Aphasia due to stroke: Consult speech therapy -Functional quadriplegia: PT/OT -UnControlled diabetes mellitus: add Sliding scale insulin -Suspect acute kidney injury/ckd 4, vasomotor nephropathy: consulted nephrology -Hyperkalemia, mild: Treat with insulin and repeat levels -Elevated troponin: Consult Cardiology 02/06/2017: Patient agitated today received IV Ativan and put in restraints Echo pending 02/07/2017: Echo reviewed but MRi brain still pending. Back to [place] in 1-2 days 02/08/2017: MRI pending. 02/09/2017: MRI brain without contrast read as multifocal acute infarcts in the cortical margins of the high left parietal, frontal, occipital brain. d/w neurology, Dr. huerta, he will come and see. History Interval history: Patient was seen and examined. Follow-up on current diagnosis. Overnight uneventful. Patient patient is nonverbal. Imaging, nursing note, chart, labs and old chart reviewed. Hospitalist Physical - Physical exam Narrative exam: GEN: Thin frail, debilitated man NAD, sleeping but arousable HEENT: NCAT, EOMI, PERRL, OP Clear NECK: supple, no adenopathy, no thyromegaly, no JVD CVS/HEART: RRR, NORMAL S1S2, NO JVD, pulses present bilaterally CHEST/LUNGS: CTA B, Symmetrical chest expansion, good air entry bilaterally GI/Abdomen: soft, NTND, good bowel sounds, no guarding or rebound /Bladder: no suprapubic tenderness, no CVA or paraspinal tenderness EXT/Skin: no c/c/e, no obvious rash MSK: Contracted legs Neuro: CN 2-12 grossly intact, Doesn't follow commands Psych: calm - Constitutional Vitals: Temp Pulse Resp BP Pulse Ox 97.5 F L 67 12 162/88 98 02/09/17 07:42 02/09/17 12:45 02/09/17 07:42 02/09/17 12:45 02/09/17 07:42 Results - Labs CBC & Chem 7: 02/09/17 05:08 02/09/17 05:08 Labs: Laboratory Last Values WBC 9.3 K/mm3 (4.5-11.0) 02/09/17 05:08 RBC 4.01 M/mm3 (3.65-5.03) 02/09/17 05:08 Hgb 12.8 gm/dl (11.8-15.2) 02/09/17 05:08 Hct 37.9 % (35.5-45.6) 02/09/17 05:08 MCV 95 fl (84-94) H 02/09/17 05:08 MCH 32 pg (28-32) 02/09/17 05:08 MCHC 34 % (32-34) 02/09/17 05:08 RDW 14.4 % (13.2-15.2) 02/09/17 05:08 Plt Count 119 K/mm3 (140-440) L 02/09/17 05:08 Lymph % (Auto) 18.4 % (13.4-35.0) 02/09/17 05:08 [place] % (Auto) 12.9 % (0.0-7.3) H 02/09/17 05:08 Eos % (Auto) 1.6 % (0.0-4.3) 02/09/17 05:08 Baso % (Auto) 0.5 % (0.0-1.8) 02/09/17 05:08 Lymph # 1.7 K/mm3 (1.2-5.4) 02/09/17 05:08 [place] # 1.2 K/mm3 (0.0-0.8) H 02/09/17 05:08 Eos # 0.1 K/mm3 (0.0-0.4) 02/09/17 05:08 Baso # 0.1 K/mm3 (0.0-0.1) 02/09/17 05:08 Seg Neutrophils % 66.6 % (40.0-70.0) 02/09/17 05:08 Seg Neutrophils # 6.2 K/mm3 (1.8-7.7) 02/09/17 05:08 D-Dimer 524.65 ng/mlDDU (0-234) H 02/04/17 23:36 Sodium 140 mmol/L (137-145) 02/09/17 05:08 Potassium 5.1 mmol/L (3.6-5.0) H 02/09/17 05:08 Chloride 104.4 mmol/L (98-107) 02/09/17 05:08 Carbon Dioxide 21 mmol/L (22-30) L 02/09/17 05:08 Anion Gap 20 mmol/L 02/09/17 05:08 BUN 47 mg/dL (9-20) H 02/09/17 05:08 Creatinine 3.6 mg/dL (0.8-1.5) H 02/09/17 05:08 Estimated GFR 20 ml/min 02/09/17 05:08 BUN/Creatinine Ratio 13 % 02/09/17 05:08 Glucose 356 mg/dL (75-100) H 02/09/17 05:08 POC Glucose 324 (70-105) H 02/09/17 11:15 Calcium 8.7 mg/dL (8.4-10.2) 02/09/17 05:08 Phosphorus 3.90 mg/dL (2.5-4.5) 02/09/17 05:08 Total Bilirubin 0.40 mg/dL (0.1-1.2) 02/04/17 19:37 AST 18 units/L (5-40) 02/04/17 19:37 ALT 15 units/L (7-56) 02/04/17 19:37 Alkaline Phosphatase 106 units/L (35-129) 02/04/17 19:37 Total Creatine Kinase 225 units/L (55-170) H 02/06/17 14:26 CK-MB (CK-2) 6.6 ng/mL (0.0-4.0) H 02/05/17 05:27 CK-MB (CK-2) Rel Index 3.7 (0-4) 02/05/17 05:27 Troponin T 0.069 ng/mL (0.00-0.029) H D 02/05/17 05:27 NT-Pro-B Natriuret Pep 2061 pg/mL (0-900) H 02/06/17 14:26 Total Protein 7.1 g/dL (6.3-8.2) 02/04/17 19:37 Albumin 3.5 g/dL (3.9-5) L 02/04/17 19:37 Albumin/Globulin Ratio 1.0 % 02/04/17 19:37 Triglycerides 73 mg/dL (2-149) 02/04/17 21:17 Cholesterol 179 mg/dL (50-199) 02/04/17 21:17 LDL Cholesterol Direct 77 mg/dL (50-130) 02/04/17 21:17 HDL Cholesterol 88 mg/dL (40-59) H 02/04/17 21:17 Cholesterol/HDL Ratio 2.03 % 02/04/17 21:17 TSH 1.900 mlU/mL (0.270-4.200) 02/04/17 19:37 Urine Color Yellow (Yellow) 02/04/17 21:34 Urine Turbidity Clear (Clear) 02/04/17 21:34 Urine pH 6.0 (5.0-7.0) 02/04/17 21:34 Ur Specific [place] 1.012 (1.003-1.030) 02/04/17 21:34 Urine Protein 100 mg/dl mg/dL (Negative) 02/04/17 21:34 Urine Glucose (UA) >=500 mg/dL (Negative) 02/04/17 21:34 Urine Ketones Neg mg/dL (Negative) 02/04/17 21:34 Urine Blood Neg (Negative) 02/04/17 21:34 Urine Nitrite Neg (Negative) 02/04/17 21:34 Urine Bilirubin Neg (Negative) 02/04/17 21:34 Urine Urobilinogen < 2.0 mg/dL (<2.0) 02/04/17 21:34 Ur Leukocyte Esterase Neg (Negative) 02/04/17 21:34 Urine WBC (Auto) < 1.0 /HPF (0.0-6.0) 02/04/17 21:34 Urine RBC (Auto) 2.0 /HPF (0.0-6.0) 02/04/17 21:34 Urine Bacteria (Auto) 1+ /HPF (Negative) 02/04/17 21:34 Urine Opiates Screen Presumptive negative 02/04/17 21:34 Urine Methadone Screen Presumptive negative 02/04/17 21:34 Ur Barbiturates Screen Presumptive negative 02/04/17 21:34 Ur Phencyclidine Scrn Presumptive negative 02/04/17 21:34 Ur Amphetamines Screen Presumptive negative 02/04/17 21:34 U Benzodiazepines Scrn Presumptive negative 02/04/17 21:34 Urine Cocaine Screen Presumptive negative 02/04/17 21:34 U Marijuana (THC) Screen Presumptive negative 02/04/17 21:34 Drugs of Abuse Note Disclamer 02/04/17 21:34 Plasma/Serum Alcohol < 0.01 gm% (0-0.07) 02/04/17 19:37
[2017-02-09] MEDS: FLOMAX PO SCH (22:22)
[2017-02-09] MEDS: PRAVACHOL PO SCH (22:23)
[2017-02-09] MEDS: ATIVAN IV PRN (22:24)
[2017-02-09] MEDS: ALBURX 25% (ALBUMIN) IV SCH (22:54)
[2017-02-10 00:07] LABS: Albumin 3.6 g/dL (3.8-4.8); Gamma Globulin 1.2 g/dL (0.8-1.7)
[2017-02-10] MEDS: ALBURX 25% (ALBUMIN) IV SCH (05:19)
[2017-02-10 06:04] LABS: Basophils % (Auto) 0.5 % (0.0-1.8); Eosinophils # (Auto) 0.2 K/mm3 (0.0-0.4); Eosinophils % (Auto) 2.6 % (0.0-4.3); Hematocrit 38.6 % (35.5-45.6); Hemoglobin 12.8 gm/dl (11.8-15.2); Lymphocytes # (Auto) 2.5 K/mm3 (1.2-5.4); Lymphocytes % (Auto) 25.5 % (13.4-35.0); Mean Corpuscular HGB Conc 33 % (32-34); Mean Corpuscular Hemoglobin 31 pg (28-32); Mean Corpuscular Volume 94 fl (84-94); Monocytes # (Auto) 1.2 K/mm3 (0.0-0.8); Monocytes % (Auto) 12.3 % (0.0-7.3); Platelet Count 135 K/mm3 (140-440); Red Blood Count 4.13 M/mm3 (3.65-5.03); Red Cell Distribution Width 14.7 % (13.2-15.2)
[2017-02-10 06:13] LABS: Calcium 8.8 mg/dL (8.4-10.2)
[2017-02-10] MEDS: ASPIRIN PO SCH (09:50)
[2017-02-10] MEDS: SODIUM BICARBONATE PO SCH (09:50)
[2017-02-10] MEDS: PROTONIX PO SCH (09:50)
[2017-02-10] MEDS: CYMBALTA PO SCH (09:50)
[2017-02-10] MEDS: LOPRESSOR PO SCH (09:50)
[2017-02-10] MEDS: NOVOLOG SUB-Q SCH (09:52)
[2017-02-10 09:53] VITALS: BP 172/117
--- NOTE | 2017-02-10 10:21 | Progress Note ---
Assessment and Plan Acute Kidney injury possibly ATN: Chronic Kidney disease stage 4: -Cr cont to rise, will start gentle IVF NS 50 cc/h -will check bladder scan, no UOP recorded due to incontinence -Renally dose all meds and avoid nephrotoxic meds CVA with right sided weakness: -CT brain -ve -Neuro cosult -MRI showed acute stroke -Per Neuro Essential hypertension: -Permissive hypertension, when Ok with neuro will need to start Amlodipine 10 mg qday Hyperkalemia: -resolved Hyponatremia, Hypotonic: -Improved. Metabolic acidosis: -On NaHCO3 tabs Hyperlipidemia, chronic: -Statin Subjective Date of service: 02/10/17 Principal diagnosis: acute renal failure, sinus tachycardia Interval history: comfortable, denies acute issues Objective - Vital Signs Vital signs: Vital Signs - 12hr 02/09/17 02/09/17 02/09/17 22:23 23:00 23:15 Temperature 98.7 F 98.9 F Pulse Rate 100 H 82 76 Respiratory 16 18 Rate Blood Pressure 178/110 162/84 160/84 Blood Pressure [Right] O2 Sat by Pulse Oximetry 02/10/17 02/10/17 02/10/17 04:41 05:20 05:35 Temperature 98.1 F 97.8 F 98.1 F Pulse Rate 139 H 76 80 Respiratory 18 18 18 Rate Blood Pressure 162/107 146/84 150/88 Blood Pressure [Right] O2 Sat by Pulse 98 Oximetry 02/10/17 02/10/17 09:50 10:02 Temperature 97.7 F Pulse Rate 20 L Respiratory 98 H Rate Blood Pressure 172/117 Blood Pressure 172/117 [Right] O2 Sat by Pulse Oximetry - General Appearance General appearance: well-developed, well-nourished EENT: ATNC, PERRL, mucous membranes moist Neck: no JVD, no carotid bruit Respiratory: Present: Clear to Ascultation. Absent: Rales, Ronchi Cardiology: regular, S1S2 Gastrointestinal: normoactive bowel sounds, no tenderness, no distended, no guarding Integumentary: no rash, warm and dry Neurologic: no focal deficit, no asterixis Musculoskeletal: other (no edema in BLE) Psychiatric: cooperative - Lab 02/10/17 06:00 02/10/17 06:00 Most recent lab results Calcium 8.8 mg/dL (8.4-10.2) 02/10/17 06:00 Phosphorus 4.00 mg/dL (2.5-4.5) 02/10/17 06:00
[2017-02-10] MEDS ORDERED: NORVASC PO SCH (11:00)
[2017-02-10] MEDS ORDERED: NACL 0.9% 1000 ML 1,000 ML IV SCH (11:00)
--- NOTE | 2017-02-10 14:57 | Discharge Summary ---
Providers - Providers Date of Admission: 02/04/17 23:14 Date of discharge: 02/10/17 Attending physician: GERARDO SQUIRES 02/04/17 Consult to Physician [CONS] Routine Consulting Provider: EMILEE THOMAS Reason For Exam: cva Place consult to:: Notified:: Phone number called:: [phone] Was contact made?: Yes If yes, spoke with:: Time called:: 09:31 Comment:: PORTILLO 02/04/17 23:14 Occupational Therapy Evaluate and Treat [CONS] Routine Comment: Reason For Exam: Neuro deficits Physical Therapy Evaluation and Treat [CONS] Routine Comment: Reason For Exam: Neuro deficits 02/05/17 16:52 Consult to Wound/ET Nurse [CONS] Routine Reason For Exam: wound eval Physical Therapy Evaluation and Treat [CONS] Routine Comment: Reason For Exam: stroke 02/05/17 17:45 Consult to Physician [CONS] Routine Consulting Provider: DEEP MALDONADO Reason For Exam: ?ARF Place consult to:: miguelina Notified:: a service Phone number called:: [phone] Was contact made?: Yes Time called:: 08:36 Primary care physician: [employer]ER Hospitalization Condition: Stable Hospital course: Patient is a 71-year-old male from [facility] with history of BPH, depression, hypertension, diabetes mellitus type 2 on insulin, dementia, CKD4, CVA and blindness who presents with new-onset right-sided weakness -Suspect acute ischemic stroke: Consult neurology: Stroke orders -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 Back to [place] in 1-2 days 02/08/2017: MRI pending. Eating well per nursing 02/09/2017: MRI brain without contrast read as multifocal acute infarcts in the cortical margins of the high left parietal, frontal, occipital brain. d/w neurology, Dr. Thomas, he will come and see. 02/10/2017: [id number] Time spent for discharge: 34 minutes Core Measure Documentation - Palliative Care Palliative Care/ Comfort Measures: Not Applicable - Core Measures Any of the following diagnoses?: stroke - VTE Discharge Requirements Deep Vein Thrombosis/Pulmonary Embolism Present on Admission: No Has pt received <5 days of overlap therapy or INR<2.0: No Anticoagulant overlap therapy prescribed at discharge: No Contraindication No Overlap Therapy order at DC: Not Indicated - Stroke Discharge Requirements Statin for LDL = or >70 mg/dl on DC: Yes Anticoag for atrial fib/atrial flutter: Not Applicable Antithrombotic for ischemic stroke: Yes Exam - Physical Exam Narrative exam: GEN: Thin frail, debilitated man NAD, sleeping but arousable HEENT: NCAT, EOMI, PERRL, OP Clear NECK: supple, no adenopathy, no thyromegaly, no JVD CVS/HEART: RRR, NORMAL S1S2, NO JVD, pulses present bilaterally CHEST/LUNGS: CTA B, Symmetrical chest expansion, good air entry bilaterally GI/Abdomen: soft, NTND, good bowel sounds, no guarding or rebound /Bladder: no suprapubic tenderness, no CVA or paraspinal tenderness EXT/Skin: no c/c/e, no obvious rash MSK: Contracted legs Neuro: CN 2-12 grossly intact, Doesn't follow commands Psych: calm - Constitutional Vitals: Temp Pulse Resp BP Pulse Ox 97.7 F 20 L 98 H 172/117 98 02/10/17 10:02 02/10/17 10:02 02/10/17 10:02 02/10/17 10:02 02/10/17 04:41 Plan Activity: up only with assistance Diet: per dietitian instruction Follow up with: ÁNGEL LOPEZ MD [Staff Physician] - 7 Days PRIMARY CARE, [Primary Care Provider] - 3-5 Days
== END 2017-02-10 17:18 | disposition home or self-care (01) | DRG 64 ==
LOC: ED 18:31 → 4A 23:14
PROVIDERS: ADMIT Internal Medicine; ATTEND Internal Medicine
DX: I63.9 Cerebral infarction, unspecified (principal); R53.2 Functional quadriplegia; N17.0 Acute kidney failure with tubular necrosis; E87.2 Acidosis; N18.4 Chronic kidney disease, stage 4 (severe); E87.1 Hypo-osmolality and hyponatremia; G81.91 Hemiplegia, unspecified affecting right dominant side; E87.5 Hyperkalemia; Z79.82 Long term (current) use of aspirin; Z79.4 Long term (current) use of insulin; F03.90 Unspecified dementia, unspecified severity, without behavioral disturbance, psychotic disturbance, mood disturbance, and anxiety; H54.8 Legal blindness, as defined in USA; E11.65 Type 2 diabetes mellitus with hyperglycemia; R33.9 Retention of urine, unspecified; I12.9 Hypertensive chronic kidney disease with stage 1 through stage 4 chronic kidney disease, or unspecified chronic kidney disease; E11.22 Type 2 diabetes mellitus with diabetic chronic kidney disease; N40.0 Benign prostatic hyperplasia without lower urinary tract symptoms; D69.6 Thrombocytopenia, unspecified; R00.0 Tachycardia, unspecified; F32.9 Major depressive disorder, single episode, unspecified; R47.01 Aphasia; E78.5 Hyperlipidemia, unspecified
CPT/HCPCS: 36415; 70450; 70551; 71010; 71045; 76770; 80048; 80053; 80061; 80307; 80320; 81001; 82550; 82553; 82962; 83880; 84100; 84165; 84443; 84484; 85025; 85379; 93005; 93010; 93306; 93880; 95819; 96361; 96374; 99291; A9270-GY; G0480; G8978-GP; G8979-GP; J1815; J2060; J7030; P9047